=== PATIENT | male | born 1975 | race Caucasian/White ===

== ENCOUNTER → 2019-12-24 09:37 | Outpatient (BNVA) | payer MEDICAID, SELFPAY | PROVIDERS: Visit Provider Orthopaedic Surgery | DX: G56.03 Carpal tunnel syndrome, bilateral upper limbs (principal); M25.642 Stiffness of left hand, not elsewhere classified; M25.641 Stiffness of right hand, not elsewhere classified | CPT/HCPCS: 99202 ==

== ENCOUNTER 2019-12-25 18:58 | Emergency (ER) | payer MEDICAID, SELFPAY ==
[2019-12-25 19:34] VITALS: BP 143/83; PULSE 89; RESP 16; TEMP 36.8; O2SAT 97; BMI 36.5
[2019-12-25 20:20] LABS: Glucose, Whole Blood 218 mg/dL (60-115)
--- NOTE | 2019-12-25 21:32 | ECG_ITS ---
Test Reason : NECK PAIN Blood Pressure : / mmHG Vent. Rate : 075 BPM Atrial Rate : 075 BPM P-R Int : 138 ms QRS Dur : 082 ms QT Int : 368 ms P-R-T Axes : 046 054 040 degrees QTc Int : 410 ms Normal sinus rhythm Normal ECG No previous ECGs available Referred By: Victor Manuel Murphy Electronically Signed By:NEELAM ANDREW MD
--- NOTE | 2019-12-25 21:43 | XR_ITS ---
EXAMINATION: XR CERVICAL SPINE CLINICAL INFORMATION: Lower neck pain COMPARISON: 06/28/2018 TECHNIQUE: 3 views of the cervical spine were obtained. FINDINGS: Degenerative changes are present with disc space narrowing at narrowing at C5-C6 with some mild osteophyte formation. Findings appear to have progressed slightly since 06/28/2018 No prevertebral soft tissue swelling is seen. No fractures are seen. There is reversal of the normal cervical lordosis. XR/XR cervical spine 3V IMPRESSION: Degenerative changes C5-C6 with reversal of normal cervical lordosis which appears slightly worse than on 06/28/2018.
--- NOTE | 2019-12-25 21:44 | ED.CHESTPAIN ---
HPI - Chest Pain General Chief Complaint: Neck Pain/Injury Stated Complaint: Neck and shoulder pain Time Seen by Provider: 12/25/19 21:27 Source: patient Mode of arrival: ambulatory Limitations: no limitations History of Present Illness HPI narrative: patient with no significant cardiac known coronary artery disease complaining of left-sided chest pain left shoulder pain and left neck pain for last 1 and half months which increases on left arm movements and movements of the neck pain is there all the time get worse often. Patient denies any shortness of breath no injury MD complaint: chest pain Onset (ago): week(s) (6) Timing of current episode: constant Prior episodes: No Pain location: left chest Pain radiation: left arm and neck Severity: mild Quality: sharp Relieving factors: movement Exacerbating factors: nothing Risk Factors Coronary artery disease risk factors: diabetes and hypertension Related Data Previous Rx's Medication Instructions Recorded arm brace #1 ea 12/24/19 arm brace #1 ea 12/24/19 arm brace #1 ea 12/25/19 arm brace #1 ea 12/25/19 Allergies Allergy/AdvReac Type Severity Reaction Status Date / Time No Known Allergies Allergy Unverified 11/07/19 16:59 Review of Systems Review of Systems: REVIEW OF SYSTEMS: Pertinent positives and negatives are stated above in the history. GEN: no fevers, chills, fatigue HEENT: no nasal congestion, sore throat, ear pain NEURO: no headache, dizziness, focal weakness PULM: no cough, shortness of breath CV: no , palpitations, LE edema ABD: no abdominal pain, nausea, vomiting, diarrhea : no dysuria, urgency, frequency SKIN: no rash ROS otherwise negative x 10 PMFSH Past Medical History Medical History Diabetes HTN (hypertension) Social History Social History Advance Directives: No Current occupational status: unemployed Current occupation: Left Handed Physical Exam Vital Signs: Vital Signs: Vital Signs Temp Pulse Resp BP Pulse Ox 12/25/19 19:34 98.3 F 89 16 143/83 H 97 Body Mass Index 36.5 VITAL SIGNS: Reviewed. GENERAL: Well developed, well nourished, in no acute distress. HEAD: Normocephalic/atraumatic, EYES: PERRLA No pallor/icterus noted EARS: Ext canals without abnormality NOSE: Nares patent bilateral OROPHARYNX: Oral mucosa moist no oral lesions NECK: Supple, no adenopathy LUNGS: Normal breath sounds. No adventitious sounds or accessory muscle use CARDIOVASCULAR: Regular rate and rhythm without noted murmurs, no JVD or lower extremity edema. ABDOMEN: Soft, non-tender, non-distended with bowel sounds. No rigidity. No guarding. No palpable masses or hernias noted MUSCULOSKELETAL: diffuse tenderness left chest wall lower cervical spine and left shoulder which increases on movement of the left shoulder and palpation of lower part of the neck EXTREMITIES: No cyanosis or edema. SKIN: no rashes, ulcerations, jaundice, pallor, or petechiae NEUROLOGIC: Alert and oriented x 3. 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
[2019-12-25] MEDS: Ketorolac Tromethamine 60 MG/2 ML VIAL IM (22:03)
[2019-12-25 22:04] VITALS: BP 135/91; PULSE 90; RESP 19; TEMP 36.9; O2SAT 96
[2019-12-25 22:26] LABS: MANUAL DIFF FLAG NO
[2019-12-25 22:27] LABS: Basophils Percent Auto 0.4 % (0-2); Eosinophils Absolute Auto 0.1 X10*3/uL (0.0-0.4); Eosinophils Percent Auto 1.7 % (0-4); Hemoglobin 14.4 g/dl (14.0-18.0); Imm Gran Abs Auto 0.04 X10*3/uL (0.00-0.03); Imm Gran Pct Auto 0.6 % (0.0-0.4); Lymphocytes Absolute Auto 3.2 X10*3/uL (1.2-4.9); Lymphocytes Percent Auto 46.5 % (20-40); Mean Corpuscular HGB Conc 33.5 g/dl (31.0-36.0); Mean Corpuscular Hemoglobin 31.9 pg (27.0-33.0); Mean Corpuscular Volume 95.3 fL (80-98); Mean Platelet Volume 10.7 fL (9.4-12.4); Monocytes Absolute Auto 0.6 X10*3/uL (0.1-1.2); Monocytes Percent Auto 8.2 % (2-11); Neutrophils Absolute Auto 2.9 X10*3/uL (2.0-8.3); Neutrophils Percent Auto 42.6 % (45-73); Platelet Count 200 X10*3/uL (160-400); Red Blood Count 4.51 X10*6/uL (4.60-5.80); Red Cell Distribution Width 12.7 % (11.0-16.0); White Blood Count 6.9 X10*3/uL (4.8-10.8)
[2019-12-25 22:48] LABS: Anion Gap 13 (12-20); Blood Urea Nitrogen 25 mg/dL (9-16); Calcium 9.8 mg/dL (8.4-10.2); Carbon Dioxide 27 mmol/L (22-29); Chloride 101 mmol/L (96-108); Creatinine Clr Calc Pharmacy 85.6; Estimated Glomerular Filt Rate 60; Glucose Random 237 mg/dL (60-115); Sodium 137 mmol/L (135-145)
[2019-12-25 22:53] LABS: Troponin-I High Sensitivity < 3.5 ng/L (<3.5-35.0)
== END 2019-12-25 23:19 | disposition home or self-care (01) ==
PROVIDERS: Emergency Provider Internal Medicine; PCP Internal Medicine
DX: M54.2 Cervicalgia (principal); M79.602 Pain in left arm
CPT/HCPCS: 36415; 72040; 80048; 82947; 84484; 85025; 93005; 96372; 99284; J1885

== ENCOUNTER 2019-12-30 10:16 | Emergency (ER) | payer MEDICAID, SELFPAY ==
--- NOTE | 2019-12-30 | ECG_ITS ---
Test Reason : SHOULDER PAIN Blood Pressure : / mmHG Vent. Rate : 073 BPM Atrial Rate : 073 BPM P-R Int : 150 ms QRS Dur : 080 ms QT Int : 372 ms P-R-T Axes : 033 052 037 degrees QTc Int : 409 ms Normal sinus rhythm Normal ECG When compared with ECG of 25-DEC-2019 22:56, No significant change was found Referred By: Generic ED Physician Electronically Signed By:NEELAM ANDREW MD
[2019-12-30 10:44] VITALS: BP 131/78; PULSE 87; RESP 18; TEMP 36.8; O2SAT 99; BMI 36.5
--- NOTE | 2019-12-30 10:53 | ED_ITS ---
HPI - Extremity Problem General Chief complaint: Extremity Problem Stated complaint: SHOULDER PAIN,NO INJ Time Seen by Provider: 12/30/19 10:42 Source: patient and asl interpreter Mode of arrival: ambulatory Limitations: no limitations History of Present Illness HPI Narrative: 45 days of L neck pain that raidates to L shoulder and chest atraumatic MD Complaint: other (L neck and shoulder pain) Onset (ago): day(s) (45) Pain Consistency: constant Location: left and upper extremity Quality: aching Radiation: distal Relieving factors: nothing Exacerbating factors: range of motion Associated symptoms: denies other symptoms Related Data Previous Rx's Medication Instructions Recorded arm brace #1 ea 12/24/19 arm brace #1 ea 12/24/19 arm brace #1 ea 12/25/19 arm brace #1 ea 12/25/19 cyclobenzaprine 10 mg PO Q8H #20 tab 12/25/19 tramadol 50 mg PO Q8H PRN #30 tab 12/25/19 diazepam [Valium] 5 mg PO TID PRN #10 tab 12/30/19 lidocaine 1 patch TOPICAL DAILY PRN #10 ea 12/30/19 Allergies Allergy/AdvReac Type Severity Reaction Status Date / Time No Known Allergies Allergy Unverified 11/07/19 16:59 Review of Systems Review of Systems: Constitutional : No Fever, No Chills ENT/Mouth : No Ear Pain, No Hoarseness, No sore throat Eyes: No Eye Pain, No Swelling, No Redness, No Foreign Body Cardiovascular : No Chest Pain, No SOB Respiratory : No Cough, No Dyspnea Gastrointestinal : No Nausea, No Vomiting, No Diarrhea, No abdominal Pain Genitourinary : No Dysuria, No Hematuria Musculoskeletal : positive joint pain, No Myalgias, No Joint Swelling Skin : No Skin lacerations, No rash Neuro : No Weakness, No Numbness, No Loss of Consciousness, No Dizziness, No Headache Psych : No Anxiety/Panic, No Depression Heme/Lymph: no easy bruising, no Lymphadenopathy Endocrine : No Polyuria, No Polydipsia All other systems reviewed and are negative [facility] Past Medical History Medical History Diabetes HTN (hypertension) Social History Social History Alcohol intake: never Smoking Status: Never smoker Use of substances other than those prescribed or required for medical reasons: No Advance Directives: Yes Advance Directives Information Provided: Yes Advance Directives on File: No Current occupational status: unemployed Current occupation: Left Handed Physical Exam Vital Signs: Vital Signs: Last Vital Signs Temp 98.2 F 12/30/19 10:44 Pulse 87 12/30/19 10:44 Resp 18 12/30/19 10:44 BP 131/78 12/30/19 10:44 Pulse Ox 99 12/30/19 10:44 Body Mass Index 36.5 Appearance: Alert. Oriented X3. No acute distress. Eyes: Pupils equal, round and reactive to light. ENT: Pharynx normal. Neck: L neck pain radiates to left shoulder no mass felt, distal NV intact CVS: Normal heart rate and rhythm. Pulses normal. Respiratory: No respiratory distress. Breath sounds normal. Abdomen: Soft and nontender. Skin: Skin warm and dry. Normal skin color. Normal skin turgor. Extremities: No lower extremity edema. No calf ttp Neuro: Oriented X 3. No motor deficit. No sensory deficit. MDM - Extremity (Nontraumatic) MDM Narrative Medical decision making narrative: 44 yo male with 45 days of L neck pain radiates up to L shoulder recent xray disease at C5-C6 he is NV intact, will provide valium and obtain CT scan for better look at vertebrae aware he needs to follow up with PCP for likely MRI given pain and chronicity ECG Data Attestation EKG: I personally reviewed and interpreted this ECG as follows: ECG interpretation date: 12/30/19 ECG interpretation time: 11:46 Interpretation: Rate: 75 Rhythm: NSR [place]: normal Normal P waves. Normal DILIP. Normal QRS complex. ST T wave : nonspecific qTC: normal prior studies: no acute ischemia The study has been interpreted contemporaneously by me. . Discharge Plan Discharge Clinical Impression: Cervical radiculopathy at C5 Patient Disposition: Home, Self-Care Instructions: Cervical Radiculopathy (ED) Prescriptions: New lidocaine 4 % adhesive patch,medicated 1 patch topical DAILY PRN (Reason: pain) Qty: 10 RF: 0 diazepam [Valium] 5 mg tablet 5 mg PO TID PRN (Reason: muscle spasm) Qty: 10 RF: 0 No Action tramadol 50 mg tablet 50 mg PO Q8H PRN (Reason: pain) Qty: 30 RF: 0 cyclobenzaprine 10 mg tablet 10 mg PO Q8H Qty: 20 RF: 0 (DME) Wrist Brace Misc See Rx Instructions .MEDSUPPLY Qty: 1 RF: 0 (DME) Wrist Brace Misc See Rx Instructions .MEDSUPPLY Qty: 1 RF: 0 (DME) Wrist Brace Misc See Rx Instructions .MEDSUPPLY Qty: 1 RF: 0 (DME) Wrist Brace Misc See Rx Instructions miscellaneous .MEDSUPPLY Qty: 1 RF: 0 Referrals: Kym Patel MD [Primary Care Provider] - 2 days Stand Alone Forms: Work/School Release
--- NOTE | 2019-12-30 10:57 | CT_ITS ---
EXAMINATION: CT CERVICAL SPINE WITHOUT CONTRAST CLINICAL INFORMATION: Left-sided neck pain COMPARISON: Plain film studies of December 25, 2019 and June 28, 2018 TECHNIQUE: CT cervical spine without intrathecal contrast. Coronal and sagittal reconstructions. This CT examination was performed using dose optimization techniques as appropriate, variously including the following: *Automated exposure control *Adjustment of mA and/or kV according to patient size (this includes techniques or standardized protocols for targeted exams where dose is matched to indication/reason for exam; i.e. extremities or head) *Use of iterative reconstruction technique DLP: 668 mGy-cm FINDINGS: No abnormal prevertebral soft tissue swelling is seen. Paraspinal muscle planes are intact. There is loss of normal cervical spine lordosis. There is narrowing of the C5-6 disc space with some marginal spurring present. No acute cervical spine fracture present. No significant neural foraminal approach medial is seen with minimal spurring joints of L[place]ch[place] at the C5-[address]/CT cervical spine wo con IMPRESSION: Mild degenerative change C5-6 level as described.
[2019-12-30] MEDS: diazePAM 5 MG TABLET PO (11:02)
== END 2019-12-30 12:30 | disposition home or self-care (01) ==
PROVIDERS: Emergency Provider Emergency Medicine; PCP Internal Medicine
DX: M54.12 Radiculopathy, cervical region (principal); M25.512 Pain in left shoulder
CPT/HCPCS: 72125; 93005; 99283; 99284

== ENCOUNTER 2020-01-06 09:30 | Outpatient (RCR) | payer MEDICAID, SELFPAY | END 2020-02-13 08:52 | disposition home or self-care (01) | LOC: HO.OT 09:30 | PROVIDERS: PCP Internal Medicine; Visit Provider Orthopaedic Surgery | DX: G56.03 Carpal tunnel syndrome, bilateral upper limbs (principal) | CPT/HCPCS: 97035; 97110; 97165; 97168; 97760 ==

== ENCOUNTER 2020-07-27 14:27 | Emergency (ER) | payer OTHER, MEDICAID, SELFPAY ==
--- NOTE | ~2020-07-27 | XR_ITS ---
EXAMINATION: XR SHOULDER, LEFT CLINICAL INFORMATION: Left shoulder injury. COMPARISON: None TECHNIQUE: Three views of the left shoulder. FINDINGS: The bones and soft tissues are normal. No fracture. Glenohumeral and acromioclavicular alignment is anatomic with normal joint space. No abnormal soft tissue calcifications. XR/XR shoulder LT min 2V IMPRESSION: Normal left shoulder.
[2020-07-27 14:39] VITALS: BP 137/81; PULSE 77; RESP 17; TEMP 36.3; O2SAT 97; BMI 35.7
--- NOTE | 2020-07-27 14:47 | PC.NURSE ---
pt given an ice pack.
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
== END 2020-07-27 17:11 | disposition home or self-care (01) ==
PROVIDERS: Emergency Provider Emergency Medicine; PCP Internal Medicine
DX: S46.812A Strain of other muscles, fascia and tendons at shoulder and upper arm level, left arm, initial encounter (principal); I10 Essential (primary) hypertension; E11.9 Type 2 diabetes mellitus without complications; V43.52XA Car driver injured in collision with other type car in traffic accident, initial encounter; Y93.89 Activity, other specified; Y92.410 Unspecified street and highway as the place of occurrence of the external cause; Y99.9 Unspecified external cause status
CPT/HCPCS: 73030; 99283

== ENCOUNTER → 2020-12-22 09:55 | Outpatient (BNVA) | payer MEDICAID, SELFPAY | PROVIDERS: Visit Provider Orthopaedic Surgery | DX: G56.03 Carpal tunnel syndrome, bilateral upper limbs (principal); G56.22 Lesion of ulnar nerve, left upper limb; M65.4 Radial styloid tenosynovitis [de Quervain] | CPT/HCPCS: 99202 ==

== ENCOUNTER 2021-06-10 12:43 | Outpatient (REF) | payer MEDICAID, SELFPAY ==
--- NOTE | ~2021-06-10 | CT_ITS ---
EXAMINATION: CT ABDOMEN AND PELVIS WITHOUT CONTRAST CLINICAL INFORMATION: Abdominal pain. Rule out kidney stones. COMPARISON: CT abdomen 10/11/2010. TECHNIQUE: Multidetector volumetric imaging was performed from the superior aspect of the liver through the pubic symphysis. Sagittal and coronal reformatted images were obtained on the technologist's workstation. This CT examination was performed using dose optimization techniques as appropriate, variously including the following: *Automated exposure control *Adjustment of mA and/or kV according to patient size (this includes techniques or standardized protocols for targeted exams where dose is matched to indication/reason for exam; i.e. extremities or head) *Use of iterative reconstruction technique DLP: 728 mGy-cm FINDINGS: LUNG BASES: Minimal atelectatic changes are seen in the lingula. The lung bases are clear. The heart size is normal. Trace coronary artery calcification seen. LIVER, GALLBLADDER, AND BILIARY TREE: The liver is normal in size, shape, and diffusely attenuated. No focal hepatic lesion or biliary ductal dilatation is present. The gallbladder is unremarkable with no evidence of radiopaque gallstones, gallbladder wall thickening, or obvious pericholecystic inflammatory changes. PANCREAS: Unremarkable. SPLEEN: Unremarkable. ADRENAL GLANDS: Unremarkable. KIDNEYS AND URETERS: The kidneys are normal in size, shape, and attenuation. There is a punctate 1 mm calculus upper pole calyx right kidney. A 2 mm hyperdensity seen in lower pole cortex right kidney. There are no radiopaque density or calculi seen in the left kidney. There is mild bilateral perinephric stranding. No hydronephrosis seen. BLADDER: Unremarkable. GASTROINTESTINAL TRACT: There is scattered stool and gas seen throughout the colon without any significant distention. The small bowel loops are opacified with oral contrast and appear normal caliber. Appendix is normal caliber. The stomach is opacified with oral contrast. ABDOMINAL WALL: No significant hernia is appreciated. LYMPH NODES: Normal. VASCULAR: There is atherosclerotic calcification of abdominal aorta without aneurysmal dilatation. PELVIC VISCERA: There is no free air or free fluid. There are scattered lymph nodes in bilateral inguinal region with the largest lymph node measuring 1.1 cm left inguinal region image 202/102. A 1.2 cm lymph node is seen in the right inguinal region. OSSEOUS STRUCTURES: No lytic or sclerotic process seen. CT/CT abdomen pelvis wo con IMPRESSION: Punctate 2 mm hyperdensity/calculus seen in the lower pole cortex right kidney. No additional radiopaque calculus in either kidney. There is no hydronephrosis. Fleischner guidelines were followed.
== END 2021-06-10 12:44 | disposition home or self-care (01) ==
LOC: HO.CT 12:43
PROVIDERS: PCP Internal Medicine; Visit Provider Emergency Medicine
DX: R10.9 Unspecified abdominal pain (principal)
CPT/HCPCS: 74176

== ENCOUNTER 2021-08-27 14:52 | Outpatient (AMB) | payer MEDICAID, SELFPAY ==
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
== END 2021-08-27 15:55 | disposition home or self-care (01) ==
LOC: HO.HUSH 14:52
PROVIDERS: PCP Internal Medicine; Visit Provider Urology
DX: N20.0 Calculus of kidney (principal)
CPT/HCPCS: 99499

== ENCOUNTER 2022-02-16 14:16 | Outpatient (REF) | payer MEDICAID, SELFPAY ==
--- NOTE | ~2022-02-16 | XR_ITS ---
EXAMINATION: XR KNEE, RIGHT CLINICAL INFORMATION: Chronic right knee pain. COMPARISON: None TECHNIQUE: Four views of the right knee. FINDINGS: There is no evidence of acute fracture or dislocation of the right knee. No right knee effusion is identified. Right knee joint spaces are maintained. XR/XR knee RT 4V IMPRESSION: No significant bony abnormality of the right knee identified.
== END 2022-02-16 14:17 | disposition home or self-care (01) ==
LOC: HO.XRAY 14:16
PROVIDERS: PCP Internal Medicine; Visit Provider Emergency Medicine
DX: M25.561 Pain in right knee (principal)
CPT/HCPCS: 73564

== ENCOUNTER 2022-03-15 12:05 | Outpatient (REF) | payer MEDICAID, SELFPAY | END 2022-03-15 12:06 | disposition home or self-care (01) | LOC: HO.HOSX 12:05 | PROVIDERS: Visit Provider Physician Assistant | DX: Z13.89 Encounter for screening for other disorder (principal) ==

== ENCOUNTER 2022-04-22 12:41 | Outpatient (REF) | payer MEDICAID, SELFPAY ==
--- NOTE | ~2022-04-22 | XR_ITS ---
EXAMINATION: XR KNEE AP STANDING CLINICAL INFORMATION: Pain right knee COMPARISON: None TECHNIQUE: AP bilateral standing view of the knees was obtained. FINDINGS: There is normal size symmetrical medial and lateral compartment joint space bilaterally. No bony erosive changes. No loose bodies. No fracture or lytic process. The soft tissues are normal. XR/XR knee standing BI IMPRESSION: Unremarkable bilateral knee AP standing.
== END 2022-04-22 12:42 | disposition home or self-care (01) ==
LOC: HO.HOSX 12:41
PROVIDERS: PCP Internal Medicine; Visit Provider Physician Assistant
DX: M17.11 Unilateral primary osteoarthritis, right knee (principal); M25.562 Pain in left knee
CPT/HCPCS: 73565; 99212

== ENCOUNTER → 2022-07-06 12:44 | Outpatient (BNVA) | payer MEDICAID, SELFPAY | PROVIDERS: PCP Internal Medicine; Visit Provider Orthopaedic Surgery | DX: G56.03 Carpal tunnel syndrome, bilateral upper limbs (principal); M65.4 Radial styloid tenosynovitis [de Quervain] | CPT/HCPCS: 99212 ==

== ENCOUNTER 2022-09-28 09:31 | Outpatient (AMB) | payer MEDICAID, SELFPAY ==
[2022-09-28 09:46] VITALS: BP 114/80; PULSE 63; BMI 35.1
--- NOTE | 2022-09-28 09:46 | MHC.OFFVIS ---
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 Name: Jamie [id number] Accompanied by: Self / Same As Patient Allergies No Known Allergies Allergy (Verified 09/28/22 09:47) Medication List - Last Reconciled 09/28/22 by Jorge Alberto Madera MD atorvastatin 40 mg PO QAM canagliflozin (Invokana) 100 mg PO QAM canagliflozin (Invokana) 300 mg PO QAM dulaglutide (Trulicity) mg subcut QWEEK gabapentin 800 mg PO TID glimepiride 4 mg PO BID ibuprofen 600 mg PO Q6H PRN lancets (TRUEplus Lancets) As directed lidocaine 4% 1 patch topical DAILY PRN lisinopril 40 mg PO DAILY pioglitazone 30 mg PO QAM HPI HPI Comments History of Present Illness Details Luis Daniel is here for consultation regarding chest pains. No known cardiac issues like coronary disease myocardial infarction or cardiomyopathy. However, multiple cardiovascular risk factors including obesity, hypertension, type 2 diabetes, dyslipidemia. He states that he gets chest pain on the left side somewhat randomly. No specific provoking or relieving factors. Some left arm discomfort as well at that time. Can happen any time. Nothing clearly exertional. [facility] Medical History (Updated 09/28/22 @ 10:10 by Jorge Alberto Madera MD) Diabetes High cholesterol HTN (hypertension) Family History (Updated 09/28/22 @ 09:50 by Freda Macias) Father No problems noted. Mother No problems noted. Brother Heart replaced by transplant Social History Alcohol intake: never Current occupational status: unemployed Current occupation: Left Handed Review of Systems Const Denies chills, Denies daytime sleepiness, Denies fatigue, Denies fever(s), Denies frequent falls, Denies night sweats, Denies snoring, Denies weakness, Denies weight gain and Denies weight loss Eyes Denies loss of vision ENT Denies dizziness and Denies hearing loss Card Denies chest pain, Denies chest pain with activity, Denies syncope, Denies rapid heart rate, Denies edema, Denies claudication, Denies leg edema, Denies lightheadedness, Denies palpitations, Denies dyspnea, Denies dyspnea on exertion and Denies orthopnea Resp Denies cough, Denies excessive phlegm production, Denies dyspnea, Denies dyspnea on exertion, Denies snoring and Denies wheezing GI Denies abdominal pain, Denies hematochezia, Denies change in bowel habits, Denies change in stool character, Denies heartburn, Denies nausea and Denies vomiting Denies hematuria, Denies dysuria and Denies urinary frequency Musc Denies arthralgias, Denies muscle weakness, Denies numbness and Denies tingling Skin/Breast Denies nail changes and Denies rash Neuro Denies Abnormal speech present, Denies dizziness, Denies syncope, Denies frequent falls, Denies loss of vision, Denies memory loss, Denies numbness, Denies tingling and Denies weakness Psych Denies depression and Denies memory loss Endo Denies fatigue and Denies palpitations Aller/Immun Denies wheezing Physical Exam Vital Signs: Last Vital Signs Pulse 63 09/28/22 09:46 BP 114/80 09/28/22 09:46 BMI result Body Mass Index 35.1 Const General: comfortable and no acute distress Orientation/consciousness: patient oriented x3 HEENT Other: Unremarkable Head: Yes normal to inspection Neck Neck: Yes normal visual inspection Chest Chest palpation & inspection: normal inspection of the chest Resp Auscultation: clear to auscultation bilaterally Cardio Palpation: normal PMI Heart sounds: S1 normal heart sound present, S2 normal heart sound present, no gallops, no murmurs and no rubs GI Palpation (GI): Soft to palpation Back/Spine/Pelvis Other: unremarkable Skin General skin exam: no rashes or lesions noted Neuro General: patient oriented x3 Speech: No Abnormal speech present Extrem General: Yes normal to inspection Psych Mental Status: mental status grossly normal Office Procedures EKG Details: EKG with sinus rhythm at 63/Min; no significant ST-T changes and otherwise [place] [id number], Complete Assessment & Plan Assessment & Plan (1) Precordial chest pain: Code(s): R07.2 - Precordial pain (2) Diabetes: Code(s): E11.9 - Type 2 diabetes mellitus without complications (3) HTN (hypertension): Code(s): I10 - Essential (primary) hypertension (4) High cholesterol: Code(s): E78.00 - Pure hypercholesterolemia, unspecified Plan Atypical symptoms but he has numerous cardiovascular risk factors. Hence we will pursue further workup with an echocardiogram and stress test. Based on the findings, will plan further care. Orders: Orders CA echo stress exercise Today R07.2 - Precordial pain CA echo transthoracic complete Today I25.10 - Atherosclerotic heart disease of [place] coronary artery without angina pectoris, R07.2 - Precordial pain Coding Level of Care Code New Pt Level 4 (90019) Diagnoses Precordial chest pain R07.2 Diabetes E11.9 HTN (hypertension) I10 High cholesterol E78.00 CPT Codes EKG - CPT: 93470-[id number], Complete ([id number])
== END 2022-09-28 10:11 | disposition home or self-care (01) ==
LOC: HO.HCSM 09:31
PROVIDERS: PCP Internal Medicine; Referring Provider Internal Medicine; Visit Provider Internal Medicine
DX: R07.2 Precordial pain (principal); E11.9 Type 2 diabetes mellitus without complications; I10 Essential (primary) hypertension; E78.00 Pure hypercholesterolemia, unspecified
CPT/HCPCS: 93010; 99204

== ENCOUNTER → 2022-09-28 09:31 | Outpatient (BNVA) | payer MEDICAID, SELFPAY | PROVIDERS: PCP Internal Medicine; Referring Provider Internal Medicine; Visit Provider Internal Medicine | DX: R07.2 Precordial pain (principal); I10 Essential (primary) hypertension; E11.9 Type 2 diabetes mellitus without complications; E78.00 Pure hypercholesterolemia, unspecified | CPT/HCPCS: 93005; 99202 ==

== ENCOUNTER 2022-09-29 13:07 | Outpatient (REF) | payer MEDICAID, SELFPAY ==
--- NOTE | ~2022-09-29 | US_ITS ---
EXAMINATION: US RETROPERITONEAL LIMITED (RENAL ONLY) CLINICAL INFORMATION: Calculus of kidney. COMPARISON: CT abdomen pelvis dated 06/10/2021. TECHNIQUE: Real-time imaging of the kidneys. FINDINGS: RIGHT KIDNEY: 10.1 x 5.7 x 5.7 cm (SAG x AP x TRV). The kidney is normal in size, contour, and echogenicity. Renal cortical thickness is normal. No focal parenchymal lesions or hydronephrosis. At the lower pole, a 4 mm nonobstructing calculus is seen, with twinkle artifact. LEFT KIDNEY: 11.3 x 6.8 x 6.1 cm (SAG x AP x TRV). The kidney is normal in size, contour, and echogenicity. Renal cortical thickness is normal. No calculi or focal parenchymal lesions. No hydronephrosis. US/US renal BI IMPRESSION: A 4 mm nonobstructing right renal calculus is seen. No left renal calculus is seen. No hydronephrosis is noted bilaterally.
== END 2022-09-29 13:08 | disposition home or self-care (01) ==
LOC: HO.US 13:07
PROVIDERS: PCP Internal Medicine; Visit Provider Urology
DX: N20.0 Calculus of kidney (principal)
CPT/HCPCS: 76775

== ENCOUNTER 2022-09-30 11:59 | Outpatient (REF) | payer MEDICAID, SELFPAY ==
[2022-09-30 13:53] LABS: MANUAL DIFF FLAG NO
[2022-09-30 14:06] LABS: Basophils Percent Auto 0.5 % (0-2); Eosinophils Absolute Auto 0.1 X10*3/uL (0.0-0.4); Hematocrit 42.9 % (42.0-52.0); Hemoglobin 13.9 g/dl (14.0-18.0); Imm Gran Abs Auto 0.03 X10*3/uL (0.00-0.03); Imm Gran Pct Auto 0.5 % (0.0-0.4); Lymphocytes Absolute Auto 2.7 X10*3/uL (1.2-4.9); Lymphocytes Percent Auto 46.3 % (20-40); Mean Corpuscular HGB Conc 32.4 g/dl (31.0-36.0); Mean Corpuscular Hemoglobin 31.5 pg (27.0-33.0); Mean Corpuscular Volume 97.3 fL (80.0-98.0); Mean Platelet Volume 10.4 fL (9.4-12.4); Monocytes Absolute Auto 0.6 X10*3/uL (0.1-1.2); Monocytes Percent Auto 10.1 % (2-11); Neutrophils Absolute Auto 2.4 x10*3/uL (2.0-8.3); Neutrophils Percent Auto 41.6 % (45-73); Platelet Count 197 X10*3/uL (160-400); Red Blood Count 4.41 X10*6/uL (4.60-5.80); Red Cell Distribution Width 13.3 % (11.0-16.0); White Blood Count 5.7 X10*3/uL (4.8-10.8)
[2022-09-30 15:12] LABS: Alanine Aminotransferase 33 U/L (0-40); Albumin Level 4.4 g/dL (3.5-5.0); Alkaline Phosphatase 59 U/L (39-117); Anion Gap 12 (12-20); Aspartate Amino Transferase 21 U/L (5-37); Bilirubin Direct 0.2 mg/dL (0.0-0.5); Bilirubin Total 0.4 mg/dL (0.0-1.0); Blood Urea Nitrogen 26 mg/dL (9-16); Calcium 10.6 mg/dL (8.4-10.2); Carbon Dioxide 26 mmol/L (22-29); Chloride 107 mmol/L (96-108); Cholesterol 139 mg/dL; Estimated Glomerular Filt Rate > 60; Glucose Random 67 mg/dL (60-115); HDL Cholesterol 41 mg/dL; LDL Cholesterol Calculated 73 mg/dl; Potassium 4.7 mmol/L (3.3-5.1); Sodium 140 mmol/L (135-145); Total Protein 7.8 g/dL (6.5-8.0); Triglycerides 127 mg/dL
[2022-09-30 17:14] LABS: Creatinine Urine 96.35 mg/dL; Microalbumin Urine < 5.0 mg/L
== END 2022-09-30 12:00 | disposition home or self-care (01) ==
LOC: HO.HHCL 11:59
PROVIDERS: Visit Provider Internal Medicine
DX: E11.65 Type 2 diabetes mellitus with hyperglycemia (principal)
CPT/HCPCS: 36415; 80048; 80061; 80076; 82043; 85025

== ENCOUNTER 2022-10-03 09:30 | Outpatient (AMB) | payer MEDICAID, SELFPAY ==
--- NOTE | 2022-10-03 03:27 | MHC.OFFVIS ---
Intake Intake Visit Reasons: 1Y US(09/29) Intake Note: Patient presents today for a 1 YR follow-up with US Results: US Completed on 09/29/2022. Meds- None Allergies to Antibiotic- No Known Allergies Blood Thinner- None Hand Tufter Required: Yes Hand Tufter Language: [place] Worker Name: AGNIESZKA Bañuelos, CMI/GUILLERMINA Information Interpreted: non-clinical & clinical Accompanied by: Self / Same As Patient Allergies No Known Allergies Allergy (Verified 10/03/22 10:12) HPI HPI Comments History of Present Illness Details Luis Daniel is a 47-year-old male who presents today to the office for a one year follow up on US. 10/03/2022-- The patient is a Tajik speaking male. 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 He was last seen by Dr. Gonzales on 08/27/2021.? He denies any hematuria. He denies any family history of prostate cancer. In discussion with the patient, he states that while he was in [place] he went to ER, and he was told that his kidneys were not functioning well, and advised to discontinue Celebrex. He had blood work by his PCP. I reviewed the results?BUN?26, creatinine?1.17. I reviewed the results of the CT scan of the abdomen/pelvis without IV contrast from 06/10/2021 revealed punctuate 2 mm stone in the lower pole of the right kidney. I reviewed the renal US from 09/29/2022 revealed official report is not available, findings are suggestive 4 mm stone in the lower pole of the right kidney. Plan: Ordered 24-hour urine collection. PSA screening. Patient was encouraged to drink adequate fluids daily. Follow up in 3 months to check the urine results. PFSH Medical History Diabetes High cholesterol HTN (hypertension) Surgical History Hx of eye surgery Hx of removal of cyst Family History Father No problems noted. Mother No problems noted. Brother Heart replaced by transplant Social History Alcohol intake: never Current occupational status: unemployed Current occupation: Left Handed Review of Systems Const All systems reviewed & are unremarkable except as noted in HPI and below Reports no additional complaints Eyes Reports no additional complaints ENT Reports no additional complaints Card Denies dyspnea Resp Denies cough and Denies dyspnea GI Reports no additional complaints Musc Reports no additional complaints Skin/Breast Denies rash and Denies unusual bruising Neuro Reports no additional complaints Psych Reports no additional complaints Endo Reports no additional complaints Daniel/Lymph Reports no additional complaints Aller/Immun Reports no additional complaints Physical Exam Const General: healthy appearing, no acute distress and well developed Orientation/consciousness: patient oriented x3 HEENT Head: Yes normocephalic and Yes atraumatic Eyes Conjunctivae: conjunctivae normal Neck Neck: Yes normal visual inspection Chest Chest palpation & inspection: normal inspection of the chest Resp Effort & Inspection: normal respiratory effort Cardio Rate: regular rate GI Inspection: Yes normal to inspection Skin General skin exam: no rashes or lesions noted Neuro General: patient oriented x3 Psych Appearance: grossly normal Affect: normal affect Results AMB Urinalysis, Automated UA Leukoctes 0 Roland/uL Last Edit by Teresa Polo [facility] on 10/03/22 10:19 UA Nitrite Negative Last Edit by Teresa Polo [facility] on 10/03/22 10:19 UA Urobilinogen 0.2 mg/dL Last Edit by Teresa Polo [facility] on 10/03/22 10:19 UA Protein 0 mg/dL Last Edit by Teresa Polo [facility] on 10/03/22 10:19 UA pH 6.0 Last Edit by Teresa Polo [facility] on 10/03/22 10:19 UA Blood 0 Sixto/uL Last Edit by Teresa Polo [facility] on 10/03/22 10:19 UA Specific [place] 1.015 Last Edit by Teresa Polo [facility] on 10/03/22 10:19 UA Ketone Negative Last Edit by Teresa Polo [facility] on 10/03/22 10:19 UA Bilirubin 0 mg/dL Last Edit by Teresa Polo [facility] on 10/03/22 10:19 UA Glucose 1000 mg/dL Last Edit by Teresa Polo [facility] on 10/03/22 10:19 3+ Teresa Polo 10/03/22 10:19 Results Reviewed Results Reviewed: Laboratory Last Values Urine pH (Auto) 6.0 10/03/22 10:18 Specific [place] (Auto) 1.015 10/03/22 10:18 Urine Protein (Auto) 0 mg/dL 10/03/22 10:18 Glucose (UA)(Auto) 1000 mg/dL 10/03/22 10:18 Urine Ketones (Auto) Negative 10/03/22 10:18 Urine Blood (Auto) 0 Sixto/uL 10/03/22 10:18 Urine Nitrite (Auto) Negative 10/03/22 10:18 Urine Bilirubin (Auto) 0 mg/dL 10/03/22 10:18 Urine Urobilinogen (Auto) 0.2 mg/dL 10/03/22 10:18 Leukocyte Esterase (Auto) 0 Roland/uL 10/03/22 10:18 Date of Service: 06/10/21 cc: SERGEY COLE MD~ EXAMINATION: CT ABDOMEN AND PELVIS WITHOUT CONTRAST? CLINICAL INFORMATION: Abdominal pain. Rule out kidney stones.? COMPARISON: CT abdomen 10/11/2010.? FINDINGS: LUNG BASES: Minimal atelectatic changes are seen in the lingula. The lung bases are clear. The heart size is normal. Trace coronary artery calcification seen.? LIVER, GALLBLADDER, AND BILIARY TREE: The liver is normal in size, shape, and diffusely attenuated. No focal hepatic lesion or biliary ductal dilatation is present. The gallbladder is unremarkable with no evidence of radiopaque gallstones, gallbladder wall thickening, or obvious pericholecystic inflammatory changes.? PANCREAS: Unremarkable.? SPLEEN: Unremarkable.? ADRENAL GLANDS: Unremarkable.? KIDNEYS AND URETERS: The kidneys are normal in size, shape, and attenuation. There is a punctate 1 mm calculus upper pole calyx right kidney. A 2 mm hyperdensity seen in lower pole cortex right kidney. There are no radiopaque density or calculi seen in the left kidney. There is mild bilateral perinephric stranding. No hydronephrosis seen. BLADDER: Unremarkable.? GASTROINTESTINAL TRACT: There is scattered stool and gas seen throughout the colon without any significant distention. The small bowel loops are opacified with oral contrast and appear normal caliber. Appendix is normal caliber. The stomach is opacified with oral contrast.? ABDOMINAL WALL: No significant hernia is appreciated.? LYMPH NODES: Normal. VASCULAR: There is atherosclerotic calcification of abdominal aorta without aneurysmal dilatation. PELVIC VISCERA: There is no free air or free fluid. There are scattered lymph nodes in bilateral inguinal region with the largest lymph node measuring 1.1 cm left inguinal region image 202/102. A 1.2 cm lymph node is seen in the right inguinal region.? OSSEOUS STRUCTURES: No lytic or sclerotic process seen.? IMPRESSION: Punctate 2 mm hyperdensity/calculus seen in the lower pole cortex right kidney. No additional radiopaque calculus in either kidney. There is no hydronephrosis.? Assessment & Plan Assessment & Plan (1) Screening PSA (prostate specific antigen): Code(s): Z12.5 - Encounter for screening for malignant neoplasm of prostate Plan: Ordered 24-hour urine collection. PSA screening. Patient was encouraged to drink adequate fluids daily. Follow up in 3 months to check the urine results. (2) Right kidney stone: Code(s): N20.0 - Calculus of kidney (3) CKD (chronic kidney disease): Code(s): N18.9 - Chronic kidney disease, unspecified Orders: Orders PSA,Total (Free>4and<10) Today Z12.5 - Encounter for screening for malignant neoplasm of prostate AMB Urinalysis Automated Today Z13.9 - Encounter for screening, unspecified Patient Instructions: The patient had an opportunity to ask questions regarding treatment plan. All questions were answered. Imaging, Laboratory studies and physical exam results were discussed and reviewed in detail. No major barriers to understanding were identified. The patient expressed understanding and agreement with the above treatment plan.? ? ? The patient is aware they should contact our office by phone for worsening of their current condition or the appearance of new symptoms. Compliance is encouraged with any medications and followup testing that is ordered.? ? ? It is a privilege to be allowed the opportunity to participate in the urologic care of your patient. If you have any questions or concerns regarding treatment for the above conditions please do not hesitate to contact me. The office telephone contact is [phone].? ? ? This note is constructed in part using voice recognition software. While every effort has been made to ensure accuracy recorder helper seismograph errors may have been included.? ? ? Yours sincerely,? ? ? Elisabeth Rowley MD? Coding Level of Care Code Est Pt Level 4 (66029) Diagnoses Screening PSA (prostate specific antigen) Z12.5 Right kidney stone N20.0 CKD (chronic kidney disease) N18.9
== END 2022-10-03 10:46 | disposition home or self-care (01) ==
PROVIDERS: PCP Internal Medicine; Visit Provider Urology
DX: Z12.5 Encounter for screening for malignant neoplasm of prostate (principal); N20.0 Calculus of kidney; N18.9 Chronic kidney disease, unspecified
CPT/HCPCS: 99214

== ENCOUNTER → 2022-10-03 09:30 | Outpatient (BNVA) | payer MEDICAID, SELFPAY | PROVIDERS: PCP Internal Medicine; Visit Provider Urology | DX: N20.0 Calculus of kidney (principal); E11.9 Type 2 diabetes mellitus without complications; I10 Essential (primary) hypertension; E78.00 Pure hypercholesterolemia, unspecified; N18.9 Chronic kidney disease, unspecified; Z12.5 Encounter for screening for malignant neoplasm of prostate | CPT/HCPCS: 99212 ==

== ENCOUNTER → 2022-11-15 10:39 | Outpatient (REF) | payer MEDICAID, SELFPAY ==
--- NOTE | 2022-11-15 10:41 | CA_ITS ---
Transthoracic Echocardiogram Patient (Last, First, Middle): Luis Daniel Jacobsen M Gender: Male Date of : 1975 Age: 47 Procedure Date: 11/15/2022 Procedure Type: Transthoracic Echocardiogram Location: OP Height: 172.72 cm Weight: 99.79 kg BSA: 2.13 m2 Heart Rate: 70 bpm BP: 125 / 80 mmHg Scientific Diver: CHERYL Rodriguez MD: Jorge Alberto Madera MD Stuntman: Surinder Adame MD Symptoms: I25.10 - Atherosclerotic heart disease of [place] coronary artery without... Study Quality: Adequate ECG Rhythm: Sinus Conclusions: - 1. Normal LV ejection fraction 55-60% 2. Normal cardiac valvular Dopplers 3. Normal RV systolic pressure 4. No gross pericardial effusion Findings Left Ventricle Normal left ventricular size, thickness, and systolic function. The visually estimated ejection fraction is between 55-60%. Spectral Doppler is indicative of a normal filling pattern. Right Ventricle Normal right ventricular cavity size and systolic function. Atria The left atrium is likely dilated. There is no evidence of interatrial shunt. The right atrium is normal in size. Aortic Valve There is mild calcification of the aortic valve. There is no aortic valve stenosis. There is no aortic valve regurgitation. Mitral Valve There is mild anterior and posterior mitral leaflet thickening. There is mild mitral annular calcification. There is trace mitral valve regurgitation. There is no mitral valve stenosis. Pulmonic Valve The pulmonic valve was not well visualized. Tricuspid Valve Normal tricuspid valve structure. There is trace tricuspid valve regurgitation. The right ventricular systolic pressure is normal. The right ventricular systolic pressure is 18 mmHg. Normal right atrial pressure. There is no evidence of pulmonary hypertension. Great Vessels The pulmonary artery was not well visualized. There is no dilatation of the ascending aorta measuring 3.10 cm. Venous The inferior vena cava is normal in size and collapses greater than 50% with inspiration. Pericardium/Pleural There is no evidence of pericardial effusion. Prior Study Comparison No prior study available for comparison. Measurements 2D Linear Measurements IVSd: 1.00 0.6-0.9/0.6-1.0 cm LVIDd: 4.74 3.9-5.3/4.2-5.9 cm LVIDd Index: 2.23 2.4-3.2/2.2-3.1 cm/m2 LVIDs: 3.28 2.0-3.6 cm LVPWd: 0.99 0.7-1.1 cm LA Diam: 3.90 2.7-3.8/3.0-4.0 cm LAIDs Index: 1.83 1.5-2.3 cm/m2 LV Mass: 206.54 67-162/88-224 g LV Mass Index: 96.97 43-95/49-115 g/m2 LVOT Diam: 2.10 3.0+(-)1.3 cm 2D Systolic Function EF 4C: 59.70 >55% EF 2C: 57.00 >55% EF BiP: 59.50 >55% Mitral Valve MV Pk E: 0.76 MV PK A: 0.60 MV Decel Time: 210.00 E/A: 1.30 E'Lateral: 9.90 E'Medial: 7.62 E/E' Med: 9.90 E/E' Lat: 7.70 PHT: 62.00 MVA PHT: 3.55 Decel [place]: 3.61 Aortic Valve AoV Pk Sudeep: 1.29 AoV Mn Sudeep: 0.94 AoV VTI: 0.27 AoV Pk Grad: 7.00 Aov Mn Grad: 4.00 SITA Cont.VTI: 2.35 LVOT LVOT Pk Sudeep: 0.96 LVOT Mn Sudeep: 0.69 LVOT VTI: 0.19 LVOT Pk Grad: 4.00 LVOT Mn Grad: 2.00 LVOT Diam: 2.10 LVOT Area: 3.46 Diastolic Function MV Pk E: 0.76 MV Pk A: 0.60 E/A: 1.30 E'Medial: 7.62 E/E' Med: 9.90 E' Laterial: 9.90 E/E' Lat: 7.70 Right Ventricle TAPSE (mm): 16.90 TVS' Sudeep: 7.62 Tricuspid Valve TR Pk Sudeep: 1.94 TR Pk Grad: 15.00 RA Press: 3.00 RVSP: 18.00 Great Vessels Aorta Sinus of Valsalva: 3.40 2.0-3.5 cm Ao Asc: 3.10 2.1-3.4 cm Pulmonary Valve PV Pk Sudeep: 0.88 Peak PV Grad: 3.00 Updated in Other Vendor System with Status of Final Surinder Adame MD electronically signed on 11/16/2022 2:21:17 PM with status of Final
== END ==
LOC: HO.CARD 10:39
PROVIDERS: PCP Internal Medicine; Visit Provider Internal Medicine
DX: R07.2 Precordial pain (principal); I25.10 Atherosclerotic heart disease of native coronary artery without angina pectoris
CPT/HCPCS: 93306

== ENCOUNTER → 2022-11-15 10:41 | Outpatient (BNV) | payer MEDICAID, SELFPAY | PROVIDERS: PCP Internal Medicine; Visit Provider Internal Medicine Cardiovascular Disease | DX: I34.81 Nonrheumatic mitral (valve) annulus calcification (principal); I35.8 Other nonrheumatic aortic valve disorders | CPT/HCPCS: 93306 ==

== ENCOUNTER → 2022-11-18 10:48 | Outpatient (REF) | payer MEDICAID, SELFPAY ==
--- NOTE | 2022-11-18 10:50 | CA_ITS ---
Acquisition Time: 2022-11-18 11:10:27 Total Exercise Time: 00:09:27 Test Indications: Chest Pain Medications: Protocol: BURTON Max HR: 166 BPM 97% of Pred: 171 BPM Max BP: 150/084 mmHG Max Work Load: 10.1 METS Exercise stress test exercise 9 min 27 sec of Burton protocol achieving 97% MPHR, with mild SOB, no chest discomfort, with isolated PVCs, with normotensive response to exercise, without EKG changes. Echo images obtained by tech at rest and immedately post peak exercise. Definity contrast used. Test reviewed with Deep Vaughn. STRESS ECHO : Technique : Images were obtained at rest and immediately post exercise within 1 minute. Definity was injected during both phases to enhance endocardial definition. Images were obtained in multiple views and compared side to side. Findings : At rest images are of adequate quality. LV systolic function is normal with normal wall motion. Post exercise images are of fair quality. There is good augmentation of overall LV systolic function with no regional wall motion abnormalities. Conclusion : Stress echo is negative for ischemia Referred By: Jorge Alberto Madera Overread By: PAM LOVE MD
== END ==
LOC: HO.CARD 10:48
PROVIDERS: Visit Provider Internal Medicine
DX: R07.2 Precordial pain (principal)
CPT/HCPCS: 93350; Q9957

== ENCOUNTER → 2022-11-18 10:50 | Outpatient (BNV) | payer MEDICAID, SELFPAY | PROVIDERS: Visit Provider Internal Medicine Cardiovascular Disease | DX: R06.02 Shortness of breath (principal) | CPT/HCPCS: 93016; 93018; 93350; 93352 ==

== ENCOUNTER 2023-03-03 14:14 | Outpatient (REF) | payer MEDICAID, SELFPAY ==
[2023-03-03 16:39] LABS: Anion Gap 10 (12-20); Blood Urea Nitrogen 17 mg/dL (9-16); Carbon Dioxide 28 mmol/L (22-29); Chloride 106 mmol/L (96-108); Estimated Glomerular Filt Rate > 60; Glucose Random 84 mg/dL (60-115); Potassium 4.1 mmol/L (3.3-5.1); Sodium 140 mmol/L (135-145)
== END 2023-03-03 14:15 | disposition home or self-care (01) ==
LOC: HO.HHCL 14:14
PROVIDERS: Visit Provider Internal Medicine
DX: E11.65 Type 2 diabetes mellitus with hyperglycemia (principal)
CPT/HCPCS: 36415; 80048

== ENCOUNTER 2023-05-08 16:52 | Outpatient (REF) | payer MEDICAID, SELFPAY | END 2023-05-08 16:53 | disposition home or self-care (01) | LOC: HO.HOSX 16:52 | PROVIDERS: Visit Provider Physician Assistant | DX: Z13.89 Encounter for screening for other disorder (principal) ==

== ENCOUNTER 2024-05-31 14:46 | Outpatient (AMB) | payer MEDICAID, SELFPAY ==
--- NOTE | 2024-05-31 14:49 | A.OFFVIS_ITS ---
Vital Signs 05/31/24 14:52 Height 5 ft 8 in Weight 224 lb 13.944 oz BMI 34.2 BP 116/70 Blood Pressure Location Lt brachial Position Sitting Pulse 73 Intake Visit Reasons: Blood in stools Intake Note: Luis Daniel presents in the office as a new patient for blood in the stools. CC: He states that he is actively bleeding almost every day. States that he does not get constipation or diarrhea. Everything that he eats he will pains in the stomach and bleeding in the stools - pains in the epigastric region after eating. Supervisor Housecleaner Required: Yes Supervisor Housecleaner Name: [id number] Vel Allergies No Known Allergies Allergy (Verified 10/03/22 10:12) HPI Comments Details: 48 y.o M who is here for rectal bleeding. Seen with Danial BRADLEY for maori interpretation. Reports onset x 1 year. Report streaks of blood on wiping and in toilet bowel. No rectal pain or pressure. Stool is formed and brown. No straining. No abd pain. No unintentional weight loss. No recent labs available to check for anemia. Has never had a colo. No family history of colon cancer. [facility] Medical History High cholesterol HTN (hypertension) Diabetes Surgical History Hx of removal of cyst Hx of eye surgery Family History Father No problems noted. Mother No problems noted. Brother Heart replaced by transplant Social History Alcohol intake: never Current occupational status: unemployed Current occupation: Left Handed Review of Systems Const All systems reviewed & are unremarkable except as noted in HPI and below Physical Exam Vital Signs: Last Vital Signs Pulse 73 05/31/24 14:52 BP 116/70 05/31/24 14:52 BMI result Body Mass Index 34.2 No apparent distress Nonicteric Abdomen soft, nondistended rectal: no ext hemorrhoids, digital exam attempted but aborted due to discomfort expressed by pt Alert and oriented x3, normal gait Assessment & Plan Assessment & Plan (1) Bright red rectal bleeding: Code(s): K62.5 - Hemorrhage of anus and rectum Category: Medical Plan Differentials include hemorrhoidal bleeding most likely. Other Ddx include anal fissure though typically with painful defecation, SURS, proctitis. Plan: - Avoid constipation and straining. Can take OTC senna or miralax to manage constipation. - avoid lifting heavy weights - increase hydration and fiber intake - anusol supp x 10-12 days - Check CBC and iron studies - colo to be booked - PEG prep Rxed and instructions reviewed. Handout provided as well. Follow-up after colonoscopy Orders: Orders IRON PROFILE Today K62.5 - Hemorrhage of anus and rectum Ferritin Today K62.5 - Hemorrhage of anus and rectum Complete Blood Count no Diff Today K62.5 - Hemorrhage of anus and rectum Medications: New peg 3350-electrolytes 236-22.74-6.74 -5.86 gram (Golytely) as per split prep instructions, until fecal effluent is clear 240 mL PO Q10M 4,000 mL 0RF colonoscopy hydrocortisone acetate (Anusol-HC) 25 mg KS BEDTIME 12 ea 0RF K64.9 - Unspecified hemorrhoids Coding Level of Care Code New Pt Level 4 (72339) Diagnoses Bright red rectal bleeding K62.5
[2024-05-31 14:52] VITALS: BP 116/70; PULSE 73; BMI 34.2
--- OUTSIDE RECORDS SUMMARY | 2024-05-31 14:59 | XMS_ITS | Encounter Summary ---
Author Organization [facility] Address [address] [place] [address] Care Team Providers Care Rn Picu Name Role Phone Kym Patel MD Primary Care Provide r Reason for Visit * Reason Onset Date Comments Nurse Triage 09/06/2022 Encounter Details Date Type Department Care Team (Late st Contact Info) Description 09/06/2022 Telephone [facility] [address] [place] [address] Kym Patel MD [address] [place] [address] Nurse Triage Social History Tobacco Use Types Packs/Day Years Used Date Smoking Tobacco: Never Smokeless Tobacco: Never Depression Answer Date Recorded Patient Health Questionnaire-9 Score 3 07/05/2022 Depression Answer Date Recorded Patient Health Questionnaire-2 Score 0 07/05/2022 Sex and Gender Information Value Date Recorded Sex Assigned at Male 12/20/2021 10:21 AM EDT Legal Sex Male 10:21 AM EDT Gender Identity Male 12/20/2021 10:21 AM EDT Sexual Orientation Straight 12/20/2021 10 :21 AM EDT documented as of this encounter Miscellaneous Notes * Telephone Encounter - Abbie Mejia RN - 09/07/2022 10:28 AM EDT Called pt. Via [employer] formation fracturing operator Felisha Hernandez. Advised pt. Per PCP to stop AM dose of Glimepiride pill for low blood sugars and if blood sugar is still low during day to also stop PM dose of Glimepiride. Pt. States he did stop his morning dose of Glimepiride this am and his current Blood sugaris 111 and he is feeling much better with no dizziness. FU appt. Made for 09/30/22 at 1045 am with PCP for FU when pt. Gets back from [facility]. Advised pt. That he can call [facility] while in [facility] if he has concerns or questions. Will forward this note to PCP as an FYI. * Telephone Encounter - Abbie Mejia RN - 09/06/2022 4:08 PM EDT Called pt. Via [employer] formation fracturing operator [phone] teresa. No answer. Retail Sales Merchandiser left message on pt. Voice mail to call back [facility] nurses at [phone]. RE: Low blood sugar. Called pt. Back without formation fracturing operator line. Advised pt. To answer phone and I would call pt. Back. Called pt. Back via [employer] formation fracturing operator [id number] Kym. Pt. States that his blood sugars have been low at around 66-72 x 5 days. Pt. States it is making him feel dizzy. Pt. Has been doing Trulicity injections x 1 month. Pt. Is currently in [place] and is not coming back to [place] until 09/25/22. Pt. Is looking for advise on how to elevate his blood sugars and if Trulicity could be causing low blood sugars. Advised pt. That if blood sugar goes <70 to drink 4 oz of orange juice or apple juice and a piece of toast with small amount of peanut butter to increase blood sugar level. Pt. States his blood sugar is low between 2pm- until he goes to bed. Fasting blood sugars in am are between 130-138. I advised pt. That if his blood sugars are at 70 or below and feels dizzy to go to ED. Do you want to add anything to pt. Regimen for afternoon? Or give different advise for low blood sugars? Please advise. * Telephone Encounter - Julita Alegre - 09/06/2022 4:06 PM EDT Symptom: Low Blood Sugar - Caller Reports Outcome: Schedule an urgent appointment (within 1 hour) or talk to a nurse or provider soon Reason: Getting worse The caller accepted this outcome Please contact pt at [phone] (Peruvian speaker) documented in this encounter Plan of Treatment Not on file documented as of this encounter Visit Diagnoses Not on filedocumented in this encounter Additional Health Concerns Assessment Noted Time PHQ-9 Depression Total Score: 3 07/06/19 23 1:04 PM EDT documented as of this encounter Care Teams Rn Picu Relationship Specialty Start Date End Date Kym Patel MD [address] [place] [address] PCP - General Family Medicine 06/28/18 documented as of this encounter
--- OUTSIDE RECORDS SUMMARY | 2024-05-31 14:59 | XMS_ITS | Clinical Summary ---
Author Organization [facility] Address [address] [facility] [address] [place] [address] Phone Care Team Providers Care Director Clinical Research Name Role Phone Kym Patel MD Primary Care Provide r Allergies No known active allergies Medications atorvastatin (LIPITOR) 40 MG tablet Take 40 mg by mouth 3 Active Invokana 300 MG tablet TAKE 1 TABLET BY MOUTH BEFORE BREAKFAST 3 Active Trulicity 0.75 MG/0.5ML solution pen-injector INJECT ONE PEN (=0.75MG) SUBCUTANEOUSLY ONCE A WEEK DIRECTED 3 Active gabapentin (NEURONTIN) 800 MG tablet Take 800 mg by mouth in the morning and 800 mg at noon and 800 mg in the evening. 3 Active glimepiride (AMARYL) 4 MG tablet Take 4 mg by mouth in the morning and 4 mg in the evening. 3 Active lisinopril 40 MG tablet Take 20 mg by mouth every morning 3 Active pioglitazone (ACTOS) 30 MG tablet Take 30 mg by mouth every morning 3 Active Active Problems Problem Noted Date Diagnosed Date Essential hypertension 07/05/2022 3 Overview (10/19/2022): Last Assessment & Plan: - Aerobic exercise to reduce BP. Initial goal of 30 min walk 3-5x/week. Increase as tolerated. - low-sodium diet (goal: <2g/day) and heart healthy diet such as DASH to reduce BP and prevent ASCVD. - Home BP monitoring 1-2 x day with goal of <140/90. - Seek immediate medical attention for chest pain, palpitations, SOB, syncope, or sudden changes in mental status. - Do not change or discontinue current prescriptions without first consulting health care provider Renal stone 07/05/2022 10/19/2022 Overview (10/19/2022): Last Assessment & Plan: I advise to avoid NSAIds, drink plenty of water, glucose and blood pressure control Resolved Problems Problem Noted Date Diagnosed Date Resolved Date Precordial pain 09/30/2022 10/19/2022 10/19/2022 Overview (10/19/2022): Last Assessment & Plan: I advise not to miss his cardiology appointments ED precautions reviewed with patient Acute back pain with sciatica 07/05/2022 10/19/2022 10/19/2022 Balanitis 07/05/2022 10/19/2022 10/19/2022 Melanocytic nevus 07/05/2022 10/19/2022 10/19/2022 Neck pain 07/05/2022 10/19/2022 10/19/2022 Pain in left shoulder 07/05/2022 10/19/20222022 Pain of knee region 07/05/2022 10/19/2022 10/20/19 23 Overview (10/19/2022): Last Assessment & Plan: I will start him on tramadol PRN Patient will need contract with me Type 2 diabetes mellitus with hyperglycemia 07/05/2022 10/19/2022 10/19/2022 Overview (10/19/2022): Last Assessment & Plan: - Lab Results Component Value Date HGBA1C 6.1 (A) 09/30/2022 HGBA1C 8.3 (A) 07/05/2022 HGBA1C 8.8 (H) 08/18/2021 - Lab Results Component Value Date MICROALBUR 0.8 08/18/2021 CREATININE 1.17 09/30/2022 - - Continue lifestyle modifications - I discontinue glimipride c/w rest of medications Immunizations Immunization Administration Dates Next Due Influenza, Quadrivalent, Preservative Free 12/30 Tdap 12/30/2020 Family History Medical History Relation Comments Other Brother Kidney disease Mother Relation Status Comments Brother Mother Social History Tobacco Use Types Packs/Day Years Used Date Smoking Tobacco: Never Passive Smoke Exposure: Never Smokeless Tobacco: Never Tobacco Cessation:Counseling Given: No Alcohol Use Standard Drinks/Week Comments Never 0 (1 standard drink = 0.6 oz pur e alcohol) Sex and Gender Information Value Date Recorded Sex Assigned at Not on file Legal Sex Male 2:37 PM EDT Gender Identity Not on file Sexual Orientation Not on file Last Filed Vital Signs Vital Sign Reading Time Taken Comments Blood Pressure 115/69 11/09/2022 4:24 PM EDT Pulse 70 11/09/2022 4:24 PM EDT Temperature - - Respiratory Rate - - Oxygen Saturation 97% 10/19/2022 2:56 PM EDT Inhaled Oxygen Concentration - - Weight 105 kg (231 lb) 10/19/2022 2:56 PM EDT Height - - Body Mass Index - - Plan of Treatment Health Maintenance Due Date Last Done Comments Pneumococcal Vaccine: Peds ( 0 to 5 Years) and At-Risk Patients (6 to 49 Years) (1 of 2 - PCV) 07[birth year]31/1981 Hepatitis B Vaccine (1 of 3 - 19+ 3-dose series) 07/30 Colorectal Cancer Screening: Annual FOBT 2022 Colorectal Cancer Screening: Colonoscopy 2022 Colorectal Cancer Screening: Sigmoidoscopy 2022 Influenza Vaccine (Season Ended) 2024 12/31/19 21 Insurance Medicaid [place] Medicaid [place] Care Teams Director Clinical Research Relationship Specialty Start Date End Date Kym Patel MD [address] [place] [phone] PCP - General Internal Medicine 10/10/22
--- OUTSIDE RECORDS SUMMARY | 2024-05-31 14:59 | XMS_ITS | Clinical Summary ---
Author Organization [employer] Address [address] [facility] 7[address] [place] [address] Care Team Providers Care Fur Blowing Machine Attendant Name Role Phone Kym Patel MD Primary Care Provide r Allergies No known active allergies Medications acetaminophen (Tylenol) 500 MG tabletIndication s:Chronic pain of right knee Take 2 tablets (1,000 mg) by mouth every 6 (six) hours if needed for moderate pain or fever for up to 25 doses. 50 tablet 02/16/20 22 Active Additional Information Patient not taking.Reported on 09/30/2022 Alcohol Swabs (Alcohol Prep) 70 % pads 100 each Once daily. USE TWICE DAILY TO TEST BLOOD SUGAR 100 each 07/13/19 23 Active TRUEplus Lancets 33G misc 100 each 2 times daily. TEST BLOOD SUGAR TWICE DAILY 100 each 07/13/19 23 Active glucose blood (FREESTYLE LITE) test strip Check by fingerstick route 2 times every day 100 each 07/13/19 23 Active gabapentin (Neurontin) 800 MG tabletIndication s:Chronic pain syndrome TAKE 1 TABLET BY MOUTH THREE TIMES DAILY 90 tablet 1 09/08/19 23 Active lidocaine (Lidoderm) 5 % patchIndications :Chronic pain of right knee APPLY 1 PATCH TOPICALLY TO SKIN, LEAVE ON FOR 12 HOURS AND OFF FOR 12 HOURS DIRECTED 30 patch 2 10/22/19 23 Active lisinopril 20 MG tabletIndication s:Essential hypertension TAKE 1 TABLET BY MOUTH EVERY MORNING 90 tablet 3 10/11/19 24 Active rosuvastatin (Crestor) 40 MG tabletIndication s:Essential hypertension TAKE 1 TABLET BY MOUTH EVERY DAY 90 tablet 1 11/20/19 24 Active empagliflozin (Jardiance) 25 MGIndications:Ty pe 2 diabetes mellitus with hyperglycemia, without long-term current use of insulin ([facility]) Take 1 tablet (25 mg) by mouth Once per day. 90 tablet 1 02/09/20 24 025 Active pioglitazone (Actos) 30 MG tabletIndication s:Hyperlipidemia associated with type 2 diabetes mellitus ([facility]) TAKE 1 TABLET BY MOUTH EVERY MORNING 90 tablet 1 02/19/20 24 Active traZODone (Desyrel) 50 MG tabletIndication s:Primary insomnia TAKE 1 TABLET BY MOUTH AT BEDTIME 30 tablet 03/22/19 25 Active Trulicity 0.75 MG/0.5ML solution auto-injectorInd ications:Type 2 diabetes mellitus with hyperglycemia, without long-term current use of insulin ([facility]) INJECT ONE PEN (=0.75MG) SUBCUTANEOUSLY ONCE A WEEK DIRECTED 2 mL 11 05/01/19 25 Active Active Problems Problem Noted Date Diagnosed Date Blood in stool, germain 02/09/2024 Other fatigue 02/09/2024 Tinea pedis of right foot 02/09/2024 Scalp lesion 02/09/2024 Primary insomnia 05/08/2023 Assessment & Plan (05/10/2023 11:32 AM EDT): Sleep hygiene counseling done I will start him on trazodone 50mg at bed time Pain of left heel 03/03/2023 Acute pain of left shoulder 03/03/2023 Atypical nevus of scalp 03/03/2023 Colon cancer screening 03/03/2023 LILIANA (acute kidney injury) 09/30/2022 Assessment & Plan (09/30/2022 4:40 PM EDT): I advise to avoid NSAIds, drink plenty of water, glucose and blood pressure control Precordial pain 09/30/2022 Assessment & Plan (09/30/2022 4:42 PM EDT): I advise not to miss his cardiology appointments ED precautions reviewed with patient Type 2 diabetes mellitus with hyperglycemia 06/20 Assessment & Plan (02/09/2024 4:40 PM EST): Diabetes is: controlled - Lab Results Component Value Date HGBA1C 6.5 (A) 02/09/2024 HGBA1C 6.4 (A) 03/03/2023 HGBA1C 6.1 (A) 09/30/2022 - Lab Results Component Value Date MICROALBUR <5.0 09/30/2022 CREATININE 1.08 03/03/2023 -Changes: I discontinue invokana and put him on jardiance - Diabetic eye exam:up to date - Diabetic foot exam:up to date - Continue lifestyle modifications - Continue current medications - Follow up: 3 months Assessment & Plan (05/10/2023 11:34 AM EDT): Diabetes is: controlled - Lab Results Component Value Date HGBA1C 6.4 (A) 03/03/2023 HGBA1C 6.1 (A) 09/30/2022 HGBA1C 8.3 (A) 07/05/2022 - Lab Results Component Value Date MICROALBUR <5.0 09/30/2022 CREATININE 1.08 03/03/2023 -Changes: none refill for trulicity today - Diabetic eye exam:up to date - Diabetic foot exam:up to date - Continue lifestyle modifications - Continue current medications - Follow up: 3 months Assessment & Plan (03/08/2023 11:44 AM EST): - Lab Results Component Value Date HGBA1C 6.4 (A) 03/03/2023 HGBA1C 6.1 (A) 09/30/2022 HGBA1C 8.3 (A) 07/05/2022 - Lab Results Component Value Date MICROALBUR <5.0 09/30/2022 CREATININE 1.08 03/03/2023 - Diabetic eye exam:referral done - Diabetic foot exam:referral done - Continue lifestyle modifications - Continue current medications Assessment & Plan (09/30/2022 4:42 PM EDT): - Lab Results Component Value Date HGBA1C 6.1 (A) 09/30/2022 HGBA1C 8.3 (A) 07/05/2022 HGBA1C 8.8 (H) 08/18/2021 - Lab Results Component Value Date MICROALBUR 0.8 08/18/2021 CREATININE 1.17 09/30/2022 - - Continue lifestyle modifications - I discontinue glimipride c/w rest of medications Assessment & Plan (07/05/2022 1:37 PM EDT): - Lab Results Component Value Date HGBA1C 8.8 (H) 08/18/2021 HGBA1C 11.5 (H) 04/07/2020 - Lab Results Component Value Date MICROALBUR 0.8 08/18/2021 - Diabetic eye exam: pending - Diabetic foot exam: pending - Continue lifestyle modifications - Continue with invokana and actos, I added today glipizide 5mg once a day Neck pain 07/05/2022 Kidney stone 07/05/2022 Essential hypertension 07/05/2022 Assessment & Plan (02/09/2024 4:39 PM EST): See HPI - Aerobic exercise to reduce BP. Initial [...] prescriptions without first consulting health care provider Assessment & Plan (05/10/2023 11:32 AM EDT): - Aerobic exercise to reduce BP. Initial [...] prescriptions without first consulting health care provider Assessment & Plan (03/08/2023 11:44 AM EST): Maintenance: BMP: up to date Lipid Panel: I change atorvastatin to rosuvastatin because patient did not like the smell of the tablet? ASCVD Risk: rosuvastatin 40mg - Aerobic exercise to reduce BP. Initial [...] prescriptions without first consulting health care provider Assessment & Plan (09/30/2022 4:40 PM EDT): - Aerobic exercise to reduce BP. Initial [...] prescriptions without first consulting health care provider Assessment & Plan (07/05/2022 1:35 PM EDT): - Aerobic exercise to reduce BP. Initial [...] prescriptions without first consulting health care provider Chronic left shoulder pain 07/05/2022 Balanitis 07/05/2022 Acute back pain with sciatica 07/05/2022 Atypical mole 07/05/2022 Atypical chest pain 07/05/2022 Bilateral chronic knee pain 07/05/2022 Assessment & Plan (07/05/2022 1:42 PM EDT): I will start him on tramadol PRN Patient will need contract with me Encounters Date Type Department Care Team Description 05/03/2024 Population Health Risk Score [facility] [address] [place] [address], [place] [id number] Provider, Population Health Generic 04/30/2024 Refill [facility] [address] [place] [address] Kym Patel MD Type 2 diabetes mellitus with hyperglycemia, without long-term current use of insulin ([facility]) 03/22/2024 Refill [facility] [address] [place] [address] Kym Patel MD Primary insomnia from Last 3 Months Immunizations Name Administration Dates Next Due Influenza injectable quadrivalent preservative f ree 12/30/2020 Tdap 12/30/2020 Social History Tobacco Use Types Packs/Day Years Used Date Smoking Tobacco: Never Passive Smoke Exposure: Never Smokeless Tobacco: Never Tobacco Cessation:Counseling Given: Not Answered Alcohol Use Standard Drinks/Week Comments Never 0 (1 standard drink = 0.6 oz pur e alcohol) Depression Answer Date Recorded Patient Health Questionnaire-9 Score 3 07/05/2022 Housing Stability Answer Date Recorded What is your housing situation today? I do not have housing (Staying with others, in a hotel, in a intermediate, living outside on the street, on a beach, in a car, or in a park 11/29/[address] you li ve. Do you have problems with any of the following? None of the above 11/29/2023 Food Insecurity Answer Date Recorded Within the past 12 months, y ou worried that your food would run out before you got money to buy more: Never True 11/29/2023 Within the past 12 months,th e food you bought just didn't last and you didn't have enough money to get more: Never True 10/2023 Transportation Answer Date Recorded In the past 12 months, has l ack of transportation kept you from medical appts, meetings, work or from getting things needed for daily living? No 11/29/2023 Utilities Answer Date Recorded In the past 12 months, has t he electric, gas, oil or water company threatened to shut off services in your home? No 11/29/2023 Depression Answer Date Recorded Patient Health Questionnaire-2 Score 0 07/05/2022 Internet Access Answer Date Recorded Internet Access Q1 Yes 11/29/2023 Internet Access Q2 Not on file 11/29/2023 Sex and Gender Information Value Date Recorded Sex Assigned at Male 12/20/2021 10:21 AM EDT Legal Sex Male 10:21 AM EDT Gender Identity Male 12/20/2021 10:21 AM EDT Sexual Orientation Straight 12/20/2021 10 :21 AM EDT Last Filed Vital Signs Vital Sign Reading Time Taken Comments Blood Pressure 140/82 02/09/2024 3:34 PM EST Pulse 78 02/09/2024 3:34 PM EST Temperature 35.4 ??C (95.7 ??F) 02/09/2024 3:34 PM ES T Respiratory Rate 12 02/09/2024 3:34 PM EST Oxygen Saturation 96% 02/09/2024 3:34 PM EST Inhaled Oxygen Concentration - - Weight 108 kg (237 lb 9.6 oz) 02/09/2024 3:34 PM EST Height 172.7 cm (5' 8 ) 02/09/2024 3:34 PM EST Body Mass Index 36.13 02/09/2024 3:34 PM EST Plan of Treatment Health Maintenance Due Date Last Done Comments CT Colonography 1973 Colonoscopy 1973 Colorectal Cancer Screening 1973 FIT DNA/Cologuard 1973 FIT 1973 FOBT 1973 HIV Screening 1973 Sigmoidoscopy 1973 Diabetes: Foot Exam 07/31/1983 Eye Exam 07/31/1983 Alcohol/Substance Use Screening 1985 Family Planning (PISQ) 1988 Hepatitis C Screening 07/31/1991 Hepatitis B Vaccines (1 of 3 - 19+ 3-dose series) 1992 Pneumococcal Vaccine: 50+ Years (1 of 2 - PCV) 1992 Depression Screening 07/06/2023 07/05/2022, 07/06/19 23 Zoster Vaccines (1 of 2) 07/31/2023 Diabetes: Urine Protein Screening 10/01/2023 09/30/2022, 08/18/2021, 12/30/2020, Additional history exists Lipid Panel 10/01/2023 09/30/2022, 07/22, 04/07/2020 COVID-19 Vaccine ( season) 2023 12/31/2020 Influenza Vaccine (#1) 2023 12/30/2020 Diabetes: Hemoglobin A1C 08/09/2024 024, 03/03/2023, 09/30/2022, Additional history exists SDOH Screening 11/28/2024 11/29/2023 Tobacco Screening 02/08/2025 02/09/2024 DTaP/Tdap/Td Vaccines (2 - Td or Tdap) 12/30/2030 12/30/2020 RSV Patients and Patients Aged 60 years or older (1 - 1-dose 75+ series) 2048 HIB Vaccines Aged Out No longer eligi ble based on patient's age to complete this topic HPV Vaccines Aged Out No longer eligi ble based on patient's age to complete this topic Hepatitis A Vaccines Aged Out No long er eligible based on patient's age to complete this topic IPV Vaccines Aged Out No longer eligi ble based on patient's age to complete this topic Meningococcal Vaccine Aged Out No tabitha caty eligible based on patient's age to complete this topic RSV under 20 months Aged Out No longe r eligible based on patient's age to complete this topic Rotavirus Vaccines Aged Out No longer eligible based on patient's age to complete this topic Procedures Procedure Name Priority Date/Time Associated Diagnosis Comments POCT GLYCATED HEMOGLOBIN, TOTAL Routine 02/09/2024 3:36 PM EST Type 2 diabetes mellitus with hyperglycemia, without long-term current use of insulin ([facility]) ALBUMIN, RANDOM URINE W/CREATININE Routine 09/30/2022 12:09 PM EDT LIPID PANEL, STANDARD Routine 09/30/2022 12:05 PM EDT Type 2 diabetes mellitus with hyperglycemia, without long-term current use of insulin ([facility]) from Last 3 Months or Most Recently Relevant to Health Maintenance Results * (ABNORMAL) POCT HGB A1C (02/09/2024 3:36 PM EST) Hemoglobin A1C 6.5(A) 4.0 - 6.0 % QC Media Lot # [id number] Lot# Expiration Date [id number] Blood 02/09/2024 3:36 PM EST Kym Mcdonough MD POINT OF CARE TEST EN TER/EDIT ORDERABLES Final Result * Albumin, Random Urine W/Creatinine (09/30/2022 12:09 PM EDT) Creatinine, Urine 96.35 mg/dL [facility] Microalbumin Urine <5.0 mg/L [facility] Microalbum Creatinine Ratio Ur TNP ug/mg cr [facility] Comment:Unable to calculate albumin/creatinine ratio due to lowmicroalbumin or creatinine result. 09/30/2022 12:0 9 PM EDT 09/30/2022 4:40 PM EDT Kym Mcdonough MD LAB URINE ORDERABLES Final Result [facility] [address] [place] [address] [phone] * Lipid Panel, Standard (09/30/2022 12:05 PM EDT) Triglycerides 127 mg/dL [facility] Comment:Desirable Triglyceri de: less than 150 mg/dLBorderline High Triglyceride 150-199 mg/dLHigh Triglyceride: 200-499 mg/dLVery High Triglyceride: greater than or equal to 5OO mg/dL Cholesterol 139 mg/dL [facility] Comment:Desirable Cholestero l: less than 200 mg/dLBorderline High Cholesterol: 200-239 mg/dLHigh Cholesterol: greater than 239 mg/dL LDL Cholesterol Calculated 73 mg/dl [facility] Comment:Desirable LDL: less than 100 mg/dLNear Optimal/Above Optimal LDL: 110- 129 mg/dLBorderline High LDL: 130-159 mg/dLHigh LDL: 160-189 mg/dLVery High LDL: greater than or equal to 190 mg/dL HDL Cholesterol 41 mg/dL [facility] Comment:Desirable HDL: great er than 40 mg/dL Note: This HDL assay may give artificially low results in patients with liver disease. Blood Venous blood specimen / Unknown 09/30/2022 12:05 PM EDT 09/30/2022 1:49 PM EDT Kym Mcdonough MD LAB BLOOD ORDERABLES Final Result [facility] [address] [place] [address] [phone] from Last 3 Months or Most Recently Relevant to Health Maintenance Insurance [facility] C3 HS FULL Care Teams Fur Blowing Machine Attendant Relationship Specialty Start Date End Date Kym Patel MD [address] [place] [address] PCP - General Family Medicine 06/28/18
--- OUTSIDE RECORDS SUMMARY | 2024-05-31 14:59 | XMS_ITS | Encounter Summary ---
Author Organization [employer] [facility] Address [address] [facility] 7t [place] [address] Care Team Providers Care Cotton Weigher Name Role Phone Kym Patel MD Primary Care Provide r Encounter Details Date Type Department Care Team (Late st Contact Info) Description 09/09/2022 Orders Only [facility] [address] [place] [address] Paulette Shepherd LPN Social History Tobacco Use Types Packs/Day Years [...] AM EDT documented as of this encounter Plan of Treatment Not on file documented as of this encounter Visit Diagnoses Not on filedocumented in this encounter Additional Health Concerns Assessment Noted Time PHQ-9 Depression Total Score: 3 07/06/19 23 1:04 PM EDT documented as of this encounter Care Teams Cotton Weigher Relationship Specialty Start Date End Date Kym Patel MD [address] [place] [address] PCP - General Family Medicine 06/28/18 documented as of this encounter
--- OUTSIDE RECORDS SUMMARY | 2024-05-31 15:00 | XMS_ITS | Encounter Summary ---
Author Organization [employer] Address [address] [facility] 7[address] [place] [address] Care Team Providers Care Fertilizer Applicator Name Role Phone Kym Patel MD Primary Care Provide r Reason for Visit * Reason Comments Med Refill Encounter Details Date Type Department Care Team ([facility] st Contact Info) Description 04/26/2023 Refill [facility] [address] [place] [address] Kym Patel MD [address] [place] [address] Chronic pain syndrome Social History Tobacco Use Types Packs/Day Years Used Date Smoking Tobacco: Never Smokeless Tobacco: Never Depression Answer Date Recorded Patient Health Questionnaire-9 Score 3 07/05/2022 Housing Stability Answer Date Recorded What is your housing situation today? I have elizabethkris hernandez 12/23/[address] you li ve. Do you have problems with any of the following? None of the above 12/23/2022 Food Insecurity Answer Date Recorded Within the past 12 months, y ou worried that your food would run out before you got money to buy more: Never True 12/23/2022 Within the past 12 months,th e food you bought just didn't last and you didn't have enough money to get more: Never True 04/2022 Transportation Answer Date Recorded In the past 12 months, has l ack of transportation kept you from medical appts, meetings, work or from getting things needed for daily living? No 12/23/2022 Utilities Answer Date Recorded In the past 12 months, has t he electric, gas, oil or water company threatened to shut off services in your home? No 12/23/2022 Depression Answer Date Recorded Patient Health Questionnaire-2 [...] documented as of this encounter Visit Diagnoses Diagnosis Chronic pain syndrome documented in this encounter Additional Health Concerns Assessment Noted Time PHQ-9 Depression Total Score: 3 07/06/19 23 1:04 PM EDT documented as of this encounter Care Teams Fertilizer Applicator Relationship Specialty Start Date End Date Kym Patel MD [address] [place] [id number] PCP - General Family Medicine 06/28/18 documented as of this encounter
--- OUTSIDE RECORDS SUMMARY | 2024-05-31 15:00 | XMS_ITS | Encounter Summary ---
Author Organization [employer] [facility] Address [address] [facility] 7t [place] [address] Care Team Providers Care Yardage Estimator Name Role Phone Kym Patel MD Primary Care Provide r Encounter Details Date Type Department Care Team (Latest Contact Info) Description 04/21/2020 Abstract [facility] CONVERSIONS Dental, Provider, DDS Social History Tobacco Use Types Packs/Day Years Used Date Smoking Tobacco: Never Assessed Sex and Gender Information Value Date Recorded Sex Assigned at Male 12/20/2021 10:21 AM EDT Legal Sex Male 10:21 AM EDT Gender Identity Male 12/20/2021 10:21 AM EDT Sexual Orientation Straight 12/20/2021 10 :21 AM EDT documented as of this encounter Plan of Treatment Not on file documented as of this encounter Visit Diagnoses Not on filedocumented in this encounter Care Teams Yardage Estimator Relationship Specialty Start Date End Date Kym Patel MD [address] [place] [address] PCP - General Family Medicine 06/28/18 documented as of this encounter
--- OUTSIDE RECORDS SUMMARY | 2024-05-31 15:00 | XMS_ITS | Encounter Summary ---
Author Organization [employer] Address [address] [facility] 7t [place] [address] Care Team Providers Care Driver Sales Name Role Phone Kym Patel MD Primary Care Provide r Reason for Visit * Reason Comments Med Refill Encounter Details Date Type Department Care Team ([facility] st Contact Info) Description 06/25/2023 Refill [facility] [address] [place] [address] Kym Patel MD [address] [place] [address] Social History Tobacco Use Types Packs/Day Years Used Date Smoking Tobacco: Never Passive Smoke Exposure: Never Smokeless Tobacco: Never Depression Answer Date [...] documented as of this encounter Care Teams Driver Sales Relationship Specialty Start Date End Date Kym Patel MD [address] [place] [id number] PCP - General Family Medicine 06/28/18 documented as of this encounter
--- OUTSIDE RECORDS SUMMARY | 2024-05-31 15:00 | XMS_ITS | Encounter Summary ---
Author Organization [employer] Address [address] [facility] [address] [place] [address] Care Team Providers Care Engineering Test Mechanic Name Role Phone Kym Patel MD Primary Care Provide r Reason for Visit * Reason Comments Med Refill Encounter Details Date Type Department Care Team ([facility] st Contact Info) Description 04/10/2023 Refill [facility] [address] [place] [address] Kym Patel MD [address] [place] [address] Hyperlipidemia associated with type 2 diabetes mellitus (CMS/HCC) Social History Tobacco Use Types Packs/Day Years Used Date Smoking Tobacco: Never Smokeless Tobacco: Never Depression Answer Date Recorded Patient Health Questionnaire-9 Score 3 07/05/2022 Housing Stability Answer Date Recorded What is your housing situation today? I have elizabethkirs hernandez 12/23/[address] you [...] as of this encounter Visit Diagnoses Diagnosis Hyperlipidemia associated with type 2 diabetes mellitus (CMS/HCC) documented in this encounter Additional Health Concerns Assessment Noted Time PHQ-9 Depression Total Score: 3 07/06/19 23 1:04 PM EDT documented as of this encounter Care Teams Engineering Test Mechanic Relationship Specialty Start Date End Date Kym Patel MD [address] [place] [phone] PCP - General Family Medicine 06/28/18 documented as of this encounter
== END 2024-05-31 15:39 | disposition home or self-care (01) ==
PROVIDERS: PCP Internal Medicine; Visit Provider Internal Medicine
DX: K62.5 Hemorrhage of anus and rectum (principal)
CPT/HCPCS: 99204

== ENCOUNTER 2024-05-31 14:46 | Outpatient (REF) | payer MEDICAID, SELFPAY ==
--- OUTSIDE RECORDS SUMMARY | 2024-05-31 15:39 | XMS_ITS | Encounter Summary ---
Author Organization [facility] Address [address] [facility] 7t [place] [address] Care Team Providers Care Automotive Collision Estimator Name Role Phone Kym Patel MD Primary Care Provide r Reason for Visit * Reason Comments Med Refill Encounter Details Date Type Department Care Team ([facility] st Contact Info) Description 04/10/2023 Refill [facility] [address] [place] [address] Kym Patel MD [address] [place] [address] Hyperlipidemia associated with type 2 diabetes mellitus [...] documented as of this encounter Care Teams Automotive Collision Estimator Relationship Specialty Start Date End Date Kym Patel MD [address] [place] [id number] PCP - General Family Medicine 06/28/18 documented as of this encounter
--- OUTSIDE RECORDS SUMMARY | 2024-05-31 15:39 | XMS_ITS | Clinical Summary ---
Author Organization [employer] Address 75 [facility] 7t [place] [address] Care Team Providers Care Qc Manager Name Role Phone Kym Patel MD Primary [...] hyperglycemia, without long-term current use of insulin ([facility]) Take 1 tablet (25 mg) by mouth Once per day. 90 tablet 1 02/09/20 24 025 Active pioglitazone (Actos) 30 MG tabletIndication s:Hyperlipidemia associated with type 2 diabetes mellitus ([facility]) TAKE 1 TABLET BY MOUTH EVERY MORNING 90 tablet 1 02/19/20 24 Active traZODone (Desyrel) 50 MG tabletIndication s:Primary insomnia TAKE 1 TABLET BY MOUTH AT BEDTIME 30 tablet 03/22/19 25 Active Trulicity 0.75 MG/0.5ML solution auto-injectorInd ications:Type 2 diabetes mellitus with hyperglycemia, without long-term current use of insulin ([facility]) INJECT ONE PEN (=0.75MG) SUBCUTANEOUSLY ONCE A [...] Risk Score [facility] Department [address] [place] [address], [place] [address] Provider, Population Health Generic 04/30/2024 Refill [facility] [address] [place] [address] Kym Patel MD Type 2 diabetes mellitus with hyperglycemia, without long-term current use of insulin ([facility]) 03/22/2024 Refill [facility] [address] [place] [address] Kym Patel MD Primary insomnia from Last [...] with others, in a hotel, in a fdc, living outside on the street, on a [...] hyperglycemia, without long-term current use of insulin ([facility]) ALBUMIN, RANDOM URINE W/CREATININE Routine 09/30/2022 12:09 PM EDT LIPID PANEL, STANDARD Routine 09/30/2022 12:05 PM EDT Type 2 diabetes mellitus with hyperglycemia, without long-term current use of insulin ([facility]) from Last 3 Months or Most Recently Relevant to Health Maintenance Results * (ABNORMAL) POCT HGB A1C (02/09/2024 3:36 PM EST) Hemoglobin A1C 6.5(A) 4.0 - 6.0 % QC Media Lot # [id number] Lot# Expiration Date [id number] Blood 02/09/2024 3:36 PM EST Kym Mcdonough MD POINT OF CARE TEST EN TER/EDIT ORDERABLES Final Result * Albumin, Random Urine W/Creatinine (09/30/2022 12:09 PM EDT) Creatinine, Urine 96.35 mg/dL [facility] Microalbumin Urine <5.0 mg/L [facility] Microalbum Creatinine Ratio Ur TNP ug/mg cr [facility] Comment:Unable to calculate albumin/creatinine ratio due to lowmicroalbumin or creatinine result. 09/30/2022 12:0 9 PM EDT 09/30/2022 4:40 PM EDT Kym Mcdonough MD LAB URINE ORDERABLES Final Result [facility] [address] [place] [address] [phone] * Lipid Panel, Standard (09/30/2022 12:05 PM EDT) Triglycerides 127 mg/dL [facility] Comment:Desirable Triglyceri de: less than 150 mg/dLBorderline High Triglyceride 150-199 mg/dLHigh Triglyceride: 200-499 mg/dLVery High Triglyceride: greater than or equal to 5OO mg/dL Cholesterol 139 mg/dL [facility] Comment:Desirable Cholestero l: less than 200 mg/dLBorderline High Cholesterol: 200-239 mg/dLHigh Cholesterol: greater than 239 mg/dL LDL Cholesterol Calculated 73 mg/dl [facility] Comment:Desirable LDL: less than 100 mg/dLNear Optimal/Above Optimal LDL: 110- 129 mg/dLBorderline High LDL: 130-159 mg/dLHigh LDL: 160-189 mg/dLVery High LDL: greater than or equal to 190 mg/dL HDL Cholesterol 41 mg/dL [facility] Comment:Desirable HDL: great er than 40 mg/dL Note: This HDL assay may give artificially low results in patients with liver disease. Blood Venous blood specimen / Unknown 09/30/2022 12:05 PM EDT 09/30/2022 1:49 PM EDT Kym Mcdonough MD LAB BLOOD ORDERABLES Final Result [facility] [address] [place] [address] [phone] from Last 3 Months or Most Recently Relevant to Health Maintenance Insurance [facility] C3 HS FULL Care Teams Qc Manager Relationship Specialty Start Date End Date Kym Patel MD [address] [place] [address] PCP - General Family Medicine 06/28/18
--- OUTSIDE RECORDS SUMMARY | 2024-05-31 15:39 | XMS_ITS | Encounter Summary ---
Author Organization [employer] [facility] Address [address] [facility] 7t [place] [address] Care Team Providers Care Grade Recorder Name Role Phone Kym Patel MD Primary Care Provide r Encounter Details Date Type Department Care Team (Latest Contact Info) Description 04/21/2020 Abstract [facility] CONVERSIONS Dental, Provider, DDS Social History Tobacco [...] on filedocumented in this encounter Care Teams Grade Recorder Relationship Specialty Start Date End Date Kym Patel MD [address] [place] [address] PCP - General Family Medicine 06/28/18 documented as of this encounter
--- OUTSIDE RECORDS SUMMARY | 2024-05-31 15:39 | XMS_ITS | Encounter Summary ---
Author Organization [employer] Address 75 [facility] 7t [place] [address] Care Team Providers Care Self Propelled Hot Mix Roller Operator Name Role Phone Kym Patel MD Primary Care Provide r Reason for Visit * Reason Comments Med Refill Encounter Details Date Type Department Care Team ([facility] st Contact Info) Description 04/26/2023 Refill [facility] [address] [place] [address] Kym Patel MD [address] [place] [address] Chronic pain syndrome Social History Tobacco Use [...] documented as of this encounter Care Teams Self Propelled Hot Mix Roller Operator Relationship Specialty Start Date End Date Kym Patel MD [address] [place] [address] PCP - General Family Medicine 06/28/18 documented as of this encounter
--- OUTSIDE RECORDS SUMMARY | 2024-05-31 15:39 | XMS_ITS | Encounter Summary ---
Author Organization [employer] [facility] Address 75 [facility] 7t [place] [address] Care Team Providers Care Rn Pediatric Icu Name Role Phone Kym Patel MD Primary Care Provide r Reason for Visit * Reason Onset Date Comments Nurse Triage 09/06/2022 Encounter Details Date Type Department Care Team (Late st Contact Info) Description 09/06/2022 Telephone [facility] MEDICINE [address] [place] [address] Kym Patel MD 230 [place] [address] Nurse Triage Social History Tobacco Use Types [...] 09/07/2022 10:28 AM EDT Called pt. Via [employer] translator/interpreter Felisha Hernandez. Advised pt. Per PCP to [...] for FU when pt. Gets back from [facility]. Advised pt. That he can call [facility] while in [facility] if he has concerns or questions. Will forward this note to PCP as an FYI. * Telephone Encounter - Abbie Mejia RN - 09/06/2022 4:08 PM EDT Called pt. Via [employer] translator/interpreter [phone] teresa. No answer. Organ Builder left message on pt. Voice mail to call back [facility] nurses at [phone]. RE: Low blood sugar. Called pt. Back without translator/interpreter line. Advised pt. To answer phone and I would call pt. Back. Called pt. Back via [employer] translator/interpreter [id number] Kym. Pt. States that his blood sugars have been low at around 66-72 x 5 days. Pt. States it is making him feel dizzy. Pt. Has been doing Trulicity injections x 1 month. Pt. Is currently in [place] and is not coming back to [place] until 09/25/22. Pt. Is looking for advise [...] accepted this outcome Please contact pt at [phone] (Djiboutian speaker) documented in this encounter Plan of Treatment Not on file documented as of this encounter Visit Diagnoses Not on filedocumented in this encounter Additional Health Concerns Assessment Noted Time PHQ-9 Depression Total Score: 3 07/06/19 23 1:04 PM EDT documented as of this encounter Care Teams Rn Pediatric Icu Relationship Specialty Start Date End Date Kym Patel MD [address] [place] [address] PCP - General Family Medicine 06/28/18 documented as of this encounter
--- OUTSIDE RECORDS SUMMARY | 2024-05-31 15:39 | XMS_ITS | Encounter Summary ---
Author Organization [employer] Address 75 [facility] 7t [place] [address] Care Team Providers Care Zipper Trimmer Hand Name Role Phone Kym Patel MD Primary Care Provide r Reason for Visit * Reason Comments Med Refill Encounter Details Date Type Department Care Team ([facility] st Contact Info) Description 06/25/2023 Refill [facility] [address] [place] [address] Kym Patel MD [address] [place] [address] Social History Tobacco Use Types Packs/Day Years [...] documented as of this encounter Care Teams Zipper Trimmer Hand Relationship Specialty Start Date End Date Kym Patel MD [address] [place] [address] PCP - General Family Medicine 06/28/18 documented as of this encounter
--- OUTSIDE RECORDS SUMMARY | 2024-05-31 15:39 | XMS_ITS | Encounter Summary ---
Author Organization [employer] [facility] Address 75 [facility] 7t [place] [address] Care Team Providers Care Industrial Maintenance Repairer Helper Name Role Phone Kym Patel MD Primary Care Provide r Encounter Details Date Type Department Care Team (Late st Contact Info) Description 09/09/2022 Orders Only [facility]INE [address] [place] [address] Paulette Shepherd LPN Social History Tobacco Use [...] documented as of this encounter Care Teams Industrial Maintenance Repairer Helper Relationship Specialty Start Date End Date Kym Patel MD [address] [place] [address] PCP - General Family Medicine 06/28/18 documented as of this encounter
[2024-05-31 16:13] LABS: Hemoglobin 14.3 g/dl (14.0-18.0); Mean Corpuscular HGB Conc 32.5 g/dl (31.0-36.0); Mean Corpuscular Hemoglobin 31.4 pg (27.0-33.0); Mean Corpuscular Volume 96.5 fL (80.0-98.0); Mean Platelet Volume 10.3 fL (9.4-12.4); Platelet Count 209 X10*3/uL (160-400); Red Blood Count 4.56 X10*6/uL (4.60-5.80); Red Cell Distribution Width 13.7 % (11.0-16.0); White Blood Count 6.8 X10*3/uL (4.8-10.8)
[2024-05-31 16:37] LABS: Iron 73 mcg/dL (45-160); Percent Iron Saturation 25 % (15-50); Total Iron Binding Capacity 293 mcg/dL (228-428); Unsaturated Iron Binding 220 ug/dL
[2024-05-31 16:51] LABS: Ferritin 191 ng/mL (20-250)
== END 2024-05-31 14:47 | disposition home or self-care (01) ==
LOC: HO.LAB 14:46
PROVIDERS: PCP Internal Medicine; Visit Provider Internal Medicine
DX: K62.5 Hemorrhage of anus and rectum (principal)
CPT/HCPCS: 36415; 82728; 83540; 85027; 99202

== ENCOUNTER 2025-02-16 08:58 | Emergency (ER) | payer MEDICAID, SELFPAY ==
--- NOTE | ~2025-02-16 | CT_ITS ---
CLINICAL HISTORY: Pain tenderness lower abdomen --- Additional Notes or Special Instructions: NO IV ACCESS 1120 CF Exam: CT Abdomen and Pelvis With IV Contrast Comparison: None Findings: The liver density is homogeneous No biliary abnormalities The spleen is normal in size No pancreatic ductal dilatation No hydronephrosis. No urinary tract calculi or obstruction. Normal bowel caliber. There are very few colon diverticula The appendix is normal. No free fluid/free air No vascular abnormalities. No adenopathy. Bladder outline is smooth No suspicious skeletal lesions. Impression: Unremarkable CT of the abdomen and pelvis. This document has been electronically signed by: Karlos John MD on 02/16/2025 13:40:09
[2025-02-16 08:59] VITALS: BP 141/76; PULSE 82; RESP 20; TEMP 37; O2SAT 98; BMI 35.6
[2025-02-16 09:14] LABS: MANUAL DIFF FLAG NO
[2025-02-16 09:15] LABS: Hematocrit 44.2 % (42.0-52.0); Hemoglobin 14.6 g/dl (14.0-18.0); Imm Gran Abs Auto 0.07 X10*3/uL (0.00-0.03); Imm Gran Pct Auto 1.2 % (0.0-0.4); Lymphocytes Absolute Auto 2.2 X10*3/uL (1.2-4.9); Mean Corpuscular HGB Conc 33.0 g/dl (31.0-36.0); Mean Corpuscular Hemoglobin 31.5 pg (27.0-33.0); Mean Corpuscular Volume 95.3 fL (80.0-98.0); NRBC Abs Auto 0.000 X10*3/uL (0.0-0.012); NRBC Pct Auto 0.0 /100WBC (0.0-0.2); Platelet Count 199 X10*3/uL (160-400); Red Blood Count 4.64 X10*6/uL (4.60-5.80); White Blood Count 5.8 X10*3/uL (4.8-10.8)
[2025-02-16 09:36] LABS: Alanine Aminotransferase 26 U/L (0-40); Albumin Level 4.4 g/dL (3.5-5.0); Alkaline Phosphatase 86 U/L (39-117); Anion Gap 12 (12-20); Aspartate Amino Transferase 17 U/L (5-37); Blood Urea Nitrogen 21 mg/dL (9-16); Calcium 9.6 mg/dL (8.4-10.2); Carbon Dioxide 26 mmol/L (22-29); Chloride 107 mmol/L (96-108); Creatinine Clr Calc Pharmacy 83.2; Estimated Glomerular Filt Rate > 60; Lipase 32 U/L (8-78); Potassium 4.4 mmol/L (3.3-5.1); Sodium 141 mmol/L (135-145); Total Protein 7.5 g/dL (6.5-8.0)
--- NOTE | 2025-02-16 10:44 | ED.GENADULT ---
HPI - General Adult General Chief complaint: Abdominal Pain Stated complaint: lower extremity pain rectal bleeding Time Seen by Provider: 02/16/25 10:43 History of Present Illness ED Provider: Karo DAIGLE narrative: The patient is a 49-year-old male. He has 2 complaints today. One is rectal bleeding. He says that for over a year he has blood with bowel movements every time he has a bowel movement. He has been trying to get into see a caving guide for a colonoscopy but the patient reports a lot of bureaucratic difficulty in making this happen. His 2nd complaint is lower abdominal pain that he has had for about 4 days. He feels the pain across his lower abdomen and it radiates into both sides of his lower back. To some degree this pain radiates down the right leg. No fever, sweats, chills. No dysuria. No vomiting. Related Data Home Medications ?Medication ?Instructions ?Recorded ?Confirmed gabapentin 800 mg tablet 800 mg PO TID 04/22/22 09/28/22 lancets 33 gauge (TRUEplus Lancets) #100 ea 04/22/22 09/28/22 dulaglutide 0.75 mg/0.5 mL mg subcut QWEEK 09/28/22 09/28/22 subcutaneous pen injector (Trulicity) pioglitazone 30 mg tablet 30 mg PO QAM 09/28/22 09/28/22 lisinopril 20 mg tablet 20 mg PO QAM 05/31/24 rosuvastatin 40 mg tablet 40 mg PO DAILY 05/31/24 Previous Rx's ?Medication ?Instructions ?Recorded hydrocortisone acetate 25 mg 25 mg AL BEDTIME #12 ea 05/31/24 rectal suppository (Anusol-HC) peg 3350-electrolytes 236 240 ml PO Q10M colonoscopy #4,000 05/31/24 gram-22.74 gram-6.74 gram-5.86 mL gram solution (Golytely) acetaminophen 500 mg capsule 1,000 mg (2 x 500 mg) PO Q8H PRN 02/16/25 fever or pain #14 caps cyclobenzaprine 10 mg tablet 10 mg PO TID PRN muscle spasm #14 02/16/25 tabs ibuprofen 400 mg tablet 400 mg PO Q6H PRN pain #14 tabs 02/16/25 Allergies Allergy/AdvReac Type Severity Reaction Status Date / Time No Known Allergies Allergy Verified 02/16/25 09:04 Review of Systems Review of Systems: Yes all other systems are reviewed and are negative [facility] Past Medical History Medical History High cholesterol HTN (hypertension) Diabetes Surgical History Hx of removal of cyst Hx of eye surgery Family History Family History Father No problems noted. Mother No problems noted. Brother Heart replaced by transplant Social History Social History Alcohol intake: never Current occupational status: unemployed Current occupation: Left Handed Physical Exam ED Vital Signs: Vital Signs - 24 hr 02/16/25 08:59 02/16/25 12:44 Temperature 98.6 F Pulse Rate 82 70 Respiratory Rate 20 16 Blood Pressure 141/76 H 111/76 Pulse Oximetry 98 96 Oxygen Delivery Method Room Air Room Air BMI result Body Mass Index 35.6 Const Other: The patient is a 49-year-old male who was awake and alert. He does not appear in obvious distress. Orientation/consciousness: patient oriented x3 HENMT Other: The face is symmetrical. ?Mucous membranes moist. Eyes Other: Pupils are round equal, conjunctivae are clear, extraocular movements intact Neck Neck: Yes normal visual inspection and Yes no lymphadenopathy Resp Effort & Inspection: normal respiratory effort Auscultation: clear to auscultation bilaterally Cardio Rate: regular rate Rhythm: regular rhythm Heart sounds: S1 normal heart sound present and S2 normal heart sound present GI Other: Some mild diffuse abdominal tenderness. Rectal exam revealed normal rectal tone. There were no masses. There was no blood in the rectum. Skin Other: The skin is dry and unremarkable Neuro General: patient oriented x3, gait normal, tone normal, moves all extremities, no focal motor deficits and CN's II-XI intact bilaterally Extrem Other: There is no calf swelling or tenderness. No asymmetry. No peripheral edema. Medications Administered Discontinued Medications Generic Name Dose Route Start Last Admin Trade Name Freq PRN Reason Stop Dose Admin Iohexol 100 ml 02/16/25 12:19 02/16/25 12:19 Iohexol 350 Mg/Ml 100 Ml Infus..Btl IV 02/16/25 12:20 85 ml ONCE ONE Administration Medical Decision Making Medical Decision Making [facility] Narrative: The patient is a 49-year-old male who reports very long history of passing blood per rectum with bowel movements. More acutely he is complaining of 4 days of abdominal discomfort. His CT scan is unremarkable. His rectal exam showed no bleeding at the moment. His labs do not show any signs of blood loss or other concerning findings. The patient was reassured. I explained that he probably has a internal hemorrhoids. He should continue his efforts to follow up with Gastroenterology and should also follow up with his regular doctor. His description of his abdominal pain suggests that it might be some kind of a low back pain syndrome. Lab Data 02/16/25 09:08 02/16/25 09:08 Labs: Lab Results 02/16/25 Range/Units 09:08 WBC 5.8 (4.8-10.8) X10*3/uL RBC 4.64 (4.60-5.80) X10*6/uL Hgb 14.6 (14.0-18.0) g/dl Hct 44.2 (42.0-52.0) % MCV 95.3 (80.0-98.0) fL MCH 31.5 (27.0-33.0) pg MCHC 33.0 (31.0-36.0) g/dl RDW 13.5 (11.0-16.0) % Plt Count 199 (160-400) X10*3/uL MPV 9.9 (9.4-12.4) fL Immature Gran % (Auto) 1.2 H (0.0-0.4) % Neut % (Auto) 47.6 (45-73) % Lymph % (Auto) 37.7 (20-40) % Putnam % (Auto) 10.9 (2-11) % Eos % (Auto) 1.9 (0-4) % Baso % (Auto) 0.7 (0-2) % Lymph # (Auto) 2.2 (1.2-4.9) X10*3/uL [place]nam # (Auto) 0.6 (0.1-1.2) X10*3/uL Eos # (Auto) 0.1 (0.0-0.4) X10*3/uL Baso # (Auto) 0.0 (0.0-0.2) X10*3/uL Abs Immat Gran (auto) 0.07 H (0.00-0.03) X10*3/uL Absolute Neuts (auto) 2.8 (2.0-8.3) x10*3/uL Absolute Nucleated RBC 0.000 (0.0-0.012) X10*3/uL Nucleated RBC % (auto) 0.0 (0.0-0.2) /100WBC Sodium 141 (135-145) mmol/L Potassium 4.4 (3.3-5.1) mmol/L Chloride 107 (96-108) mmol/L Carbon Dioxide 26 (22-29) mmol/L Anion Gap 12 (12-20) BUN 21 H (9-16) mg/dL Creatinine 1.24 (0.5-1.4) mg/dL Estim Creat Clear Calc 83.2 Estimated GFR > 60 Random Glucose 179 H (60-115) mg/dL Calcium 9.6 (8.4-10.2) mg/dL Total Bilirubin 0.4 (0.0-1.0) mg/dL Direct Bilirubin 0.1 (0.0-0.5) mg/dL AST 17 (5-37) U/L ALT 26 (0-40) U/L Alkaline Phosphatase 86 (39-117) U/L Total Protein 7.5 (6.5-8.0) g/dL Albumin 4.4 (3.5-5.0) g/dL Lipase 32 (8-78) U/L Discharge Plan Discharge Clinical Impression: Rectal bleeding, Lower abdominal pain, Low back pain Patient Disposition: Home, Self-Care Additional Instructions: You were not showing any signs of dangerous bleeding. You may have internal hemorrhoids. Please continue your efforts to see a caving guide to discuss this further. Your lower abdominal pain may be a manifestation of low back pain. For this pain you may use acetaminophen and ibuprofen. I have sent prescriptions for these medications to the pharmacy on [address]. I have also sent a prescription for a medication called cyclobenzaprine. This is a muscle relaxant that you can use when pain is severe. No driving on this medication. It can make you drowsy. Therefore please follow up soon with your regular doctor and continue your efforts to see a caving guide. Return to the emergency room if significantly worse. Prescriptions: New cyclobenzaprine 10 mg tablet 10 mg PO TID PRN (Reason: muscle spasm) Qty: 14 0RF ibuprofen 400 mg tablet 400 mg PO Q6H PRN (Reason: pain) Qty: 14 0RF acetaminophen 500 mg capsule 1,000 mg PO Q8H PRN (Reason: fever or pain) Qty: 14 0RF No Action gabapentin 800 mg tablet 800 mg PO TID (DME) lancets [TRUEplus Lancets] 33 gauge misc See Rx Instructions .ROUTE BID Qty: 100 Rx Instructions: As directed Trulicity 0.75 mg/0.5 mL pen injector subcut QWEEK pioglitazone 30 mg tablet 30 mg PO QAM lisinopril 20 mg tablet 20 mg PO QAM rosuvastatin 40 mg tablet 40 mg PO DAILY peg 3350-electrolytes [Golytely] 236-22.74-6.74 -5.86 gram recon soln 240 ml PO Q10M Qty: 4000 0RF Rx Instructions: as per split prep instructions, until fecal effluent is clear hydrocortisone acetate [Anusol-HC] 25 mg suppository 25 mg AL BEDTIME Qty: 12 0RF Referrals: Kym Patel MD [Primary Care Provider, Internal Medicine] Interventions: ED Discharge Assessment Last Done: 02/16/25 14:35 Discharge Date/Time: 02/16/25 14:36 Print Language: Slovak
--- OUTSIDE RECORDS SUMMARY | 2025-02-16 10:44 | XMS_ITS | Patient Health Record ---
Author Organization [facility] Address [address] [place] [address], [address] [place] [address] Support Name Relationship Address Phone MAUREEN ROBBINS Guarantor Unknown [phone] Reason For Referral No Information Plan Of Treatment No Information
--- OUTSIDE RECORDS SUMMARY | 2025-02-16 10:44 | XMS_ITS | Encounter Summary ---
Author Organization [employer] Address [address] [facility] 7t [place] [address] Care Team Providers Care Pie Filler Name Role Phone Kym Patel MD Primary Care Provide r Reason for Visit * Reason Comments Med Refill Encounter Details Date Type Department Care Team ([facility] st Contact Info) Description 06/25/2023 Refill [facility] [address] [place] [address] Kym Patel MD 230 [place], [place] [phone] Social History Tobacco Use Types Packs/Day Years [...] as of this encounter Plan of Treatment Upcoming Encounters Date Type Department Care Team (Late st Contact Info) Description 03/25/2025 9:30 AM EST Office Visit [facility] [address] [place] [address] Kym Patel MD 230 [place] [address] 05/19/2025 1:00 PM EDT Office Visit [facility] OPTOMETRY [address] [place] [address] Bernardino, Charmaine, OD [address] [place] [address] documented as of this encounter Visit Diagnoses Not on filedocumented in this encounter Additional Health Concerns Assessment Noted Time PHQ-9 Depression Total Score: 3 07/06/19 23 1:04 PM EDT documented as of this encounter Care Teams Pie Filler Relationship Specialty Start Date End Date Kym Patel MD [address] [place] [address] PCP - General Family Medicine 06/28/18 documented as of this encounter
--- OUTSIDE RECORDS SUMMARY | 2025-02-16 10:44 | XMS_ITS | Encounter Summary ---
Author Organization [employer] Address [address] [facility] 7 [place] [address] Care Team Providers Care Business Representative Name Role Phone Kym Patel MD Primary Care Provide r Encounter Details Date Type Department Care Team (Late Contact Info) Description 09/09/2022 Orders Only [facility] MEDICINE [address] [place] [phone] Paulette Shepherd LPN Social History Tobacco Use [...] Description 03/25/2025 9:30 AM EST Office Visit [facility]INE 230 [place] [address] Kym Patel MD [address] [place] [address] 05/19/2025 1:00 PM EDT Office Visit [facility] OPTOMETRY [address] [place] [address] Bernardino, Charmaine, OD [address] [place] [address] documented as of this encounter Visit Diagnoses Not on filedocumented in this encounter Additional Health Concerns Assessment Noted Time PHQ-9 Depression Total Score: 3 07/06/19 23 1:04 PM EDT documented as of this encounter Care Teams Business Representative Relationship Specialty Start Date End Date Kym Patel MD [address] [place] [address] PCP - General Family Medicine 06/28/18 documented as of this encounter
--- OUTSIDE RECORDS SUMMARY | 2025-02-16 10:44 | XMS_ITS | Encounter Summary ---
Author Organization [employer] Address 75 [facility] 7t [place] [address] Care Team Providers Care Tax Services Professional Name Role Phone Kym Patel MD Primary Care Provide r Reason for Visit * Reason Onset Date Comments Nurse Triage 09/06/2022 Encounter Details Date Type Department Care Team ([facility] st Contact Info) Description 09/06/2022 Telephone [facility] MEDICINE [address] [place], [place] [phone] Kym Patel MD [address] [place], [place] [phone] Nurse Triage Social History Tobacco Use Types [...] 09/07/2022 10:28 AM EDT Called pt. Via [employer] wood gang sawyer Felisha Hernandez. Advised pt. Per PCP to [...] for FU when pt. Gets back from [facility]. Advised pt. That he can call [facility] while in [facility] if he has concerns or questions. Will forward this note to PCP as an FYI. * Telephone Encounter - Abbie Mejia RN - 09/06/2022 4:08 PM EDT Called pt. Via [employer] [phone] teresa. No answer. Hot Dip Galvanizer left message on pt. Voice mail to call back [facility] nurses at [phone]. RE: Low blood sugar. Called pt. Back without wood gang sawyer line. Advised pt. To answer phone and I would call pt. Back. Called pt. Back via [employer] wood [employer] sawyer [phone] Kym. Pt. States that his blood sugars have been low at around 66-72 x 5 days. Pt. States it is making him feel dizzy. Pt. Has been doing Trulicity injections x 1 month. Pt. Is currently in [place] and is not coming back to [place] until 09/25/22. Pt. Is looking for advise [...] accepted this outcome Please contact pt at [phone] (British speaker) documented in this encounter Plan of Treatment Upcoming Encounters Date Type Department Care Team (Late st Contact Info) Description 03/25/2025 9:30 AM EST Office Visit [facility] MEDICINE [address] [place] [address] Kym Patel MD [address] [place] [address] 05/19/2025 1:00 PM EDT Office Visit [facility] OPTOMETRY [address] [place] [address] Charmaine Lebron, OD [address] [place] [address] documented as of this encounter Visit Diagnoses Not on filedocumented in this encounter Additional Health Concerns Assessment Noted Time PHQ-9 Depression Total Score: 3 07/06/19 23 1:04 PM EDT documented as of this encounter Care Teams Tax Services Professional Relationship Specialty Start Date End Date Kym Patel MD [address] [place] [address] PCP - General Family Medicine 06/28/18 documented as of this encounter
--- OUTSIDE RECORDS SUMMARY | 2025-02-16 10:44 | XMS_ITS | Clinical Summary ---
Author Organization [facility] Address [facility] [address] [place] [address] Phone Care Team Providers Care Residential Plumber Name Role Phone Kym Patel MD Primary [...] Health Maintenance Due Date Last Done Comments Hepatitis B Vaccine (1 of 3 - 19+ 3-dose series) 07/30 Pneumococcal Vaccine: 50+ Years (1 of 2 - PCV) 993 Colorectal Cancer Screening: Annual FOBT 2022 Colorectal Cancer Screening: Colonoscopy 2022 Colorectal Cancer Screening: Sigmoidoscopy 2022 Influenza Vaccine (#1) 2024 12/30/2020 Insurance Medicaid [place] Medicaid [place] Care Teams Residential Plumber Relationship Specialty Start Date End Date Kym Patel MD [address] [place] [phone] PCP - General Internal Medicine 10/10/22
--- OUTSIDE RECORDS SUMMARY | 2025-02-16 10:44 | XMS_ITS | Encounter Summary ---
Author Organization [employer] Address 75 [facility] 7t [place] [address] Care Team Providers Care Drum Handler Name Role Phone Kym Patel MD Primary Care Provide r Encounter Details Date Type Department Care Team (Latest Contact Info) Description 04/21/2020 Abstract [facility] CONVERSIONS Dental, Provider, DDS Social History Tobacco [...] Description 03/25/2025 9:30 AM EST Office Visit [facility] MEDICINE [address] [place] [address] Kym Patel MD [address] [place] [address] 05/19/2025 1:00 PM EDT Office Visit [facility] OPTOMETRY [address] [place] [address] BernardinoCharmaine fuller, OD [address] [place] [address] documented as of this encounter Visit Diagnoses Not on filedocumented in this encounter Care Teams Drum Handler Relationship Specialty Start Date End Date Kym Patel MD [address] [place] [address] PCP - General Family Medicine 06/28/18 documented as of this encounter
--- OUTSIDE RECORDS SUMMARY | 2025-02-16 10:44 | XMS_ITS | Encounter Summary ---
Author Organization [employer] Address 75 [facility] 7t [place] [address] Care Team Providers Care Sponge Hooker Name Role Phone Kym Patel MD Primary Care Provide r Reason for Visit * Reason Comments Med Refill Encounter Details Date Type Department Care Team ([facility] st Contact Info) Description 04/10/2023 Refill [facility] [address] [place], [place] [phone] Kym Patel MD [address] [place], [place] [phone] Hyperlipidemia associated with type 2 diabetes mellitus [...] Description 03/25/2025 9:30 AM EST Office Visit [facility] [address] [place] [address] Kym Patel MD [address] [place] [address] 05/19/2025 1:00 PM EDT Office Visit [facility] OPTOMETRY [address] [place] [address] Bernardino, Charmaine, OD [address] [place] [address] documented as of this encounter Visit Diagnoses Diagnosis Hyperlipidemia associated with type 2 diabetes mellitus (HCC) documented in this encounter Additional Health Concerns Assessment Noted Time PHQ-9 Depression Total Score: 3 07/06/19 23 1:04 PM EDT documented as of this encounter Care Teams Sponge Hooker Relationship Specialty Start Date End Date Kym Patel MD [address] [place] [address] PCP - General Family Medicine 06/28/18 documented as of this encounter
--- OUTSIDE RECORDS SUMMARY | 2025-02-16 10:44 | XMS_ITS | Encounter Summary ---
Author Organization [employer] Address 75 [facility] 7t [place] [address] Care Team Providers Care Solar Tech Name Role Phone Kym Patel MD Primary Care Provide r Reason for Visit * Reason Comments Med Refill Encounter Details Date Type Department Care Team ([facility] st Contact Info) Description 04/26/2023 Refill [facility] MEDICINE [address] [place] [address] Kym Patel MD [address] [place], [place] [phone] Chronic pain syndrome Social History Tobacco Use [...] Description 03/25/2025 9:30 AM EST Office Visit [facility] MEDICINE [address] [place] [address] Kym Patel MD [address] [place] [address] 05/19/2025 1:00 PM EDT Office Visit [facility] OPTOMETRY [address] [place] [address] Bernardino, Charmaine, OD [address] [place] [address] documented as of this encounter Visit Diagnoses Diagnosis Chronic pain syndrome documented in this encounter Additional Health Concerns Assessment Noted Time PHQ-9 Depression Total Score: 3 07/06/19 23 1:04 PM EDT documented as of this encounter Care Teams Solar Tech Relationship Specialty Start Date End Date Kym Patel MD [address] [place], [place] [phone] PCP - General Family Medicine 06/28/18 documented as of this encounter
--- OUTSIDE RECORDS SUMMARY | 2025-02-16 10:44 | XMS_ITS | Clinical Summary ---
Author Organization [facility] [employer] Address [address] [place] [address] Care Team Providers Care Double Reamer Operator Name Role Phone Kym Patel MD Primary Care Provide r Allergies No known active allergies Medications acetaminophen (Tylenol) 500 MG tabletIndicatio ns:Chronic pain of right knee Take 2 tablets (1,000 mg) by mouth every 6 (six) hours if needed for moderate pain or fever for up to 25 doses. 50 tablet 022 Active Additional Information Patient not taking.Reported on 09/30/2022 gabapentin (Neurontin) 800 MG tabletIndicatio ns:Chronic pain syndrome TAKE 1 TABLET BY MOUTH THREE TIMES DAILY 90 tablet 1 023 Active lidocaine (Lidoderm) 5 % patchIndication s:Chronic pain of right knee APPLY 1 PATCH TOPICALLY TO SKIN, LEAVE ON FOR 12 HOURS AND OFF FOR 12 HOURS DIRECTED 30 patch 2 023 Active rosuvastatin (Crestor) 40 MG tabletIndicatio ns:Essential hypertension TAKE 1 TABLET BY MOUTH EVERY DAY 90 tablet 1 024 Active traZODone (Desyrel) 50 MG tabletIndicatio ns:Primary insomnia TAKE 1 TABLET BY MOUTH AT BEDTIME 30 tablet 025 Active Trulicity 0.75 MG/0.5ML solution auto-injectorIn dications:Type 2 diabetes mellitus with hyperglycemia, without long-term current use of insulin ([facility]) INJECT ONE PEN (=0.75MG) SUBCUTANEOUSLY ONCE A WEEK DIRECTED 2 mL 11 02/06/20 25 3:15 PM EST 025 Active Jardiance 25 MGIndications:T ype 2 diabetes mellitus with hyperglycemia, without long-term current use of insulin (HCC) TAKE 1 TABLET BY MOUTH ONCE DAILY 30 tablet 3 025 Active pioglitazone (Actos) 30 MG tabletIndicatio ns:Hyperlipidem ia associated with type 2 diabetes mellitus (HCC) TAKE 1 TABLET BY MOUTH EVERY DAY IN THE MORNING 90 tablet 1 02/01/20 25 4:48 PM EST 025 Active lisinopril 20 MG tabletIndicatio ns:Essential hypertension TAKE 1 TABLET BY MOUTH EVERY MORNING 90 tablet 3 02/06/20 25 3:15 PM EST 025 Active Alcohol Swabs (Alcohol Prep) 70 % padsIndications :Type 2 diabetes mellitus with hyperglycemia, without long-term current use of insulin ([facility]) 1 each 2 times daily. USE TWICE DAILY TO TEST BLOOD SUGAR 100 each 02/12/20 11:48 AM EST 025 Active glucose blood (FREESTYLE LITE) test stripIndication s:Type 2 diabetes mellitus with hyperglycemia, without long-term current use of insulin ([facility]) Check by fingerstick route 2 times every day 100 each 02/12/20 25 11:48 AM EST 025 Active TRUEplus Lancets 33G miscIndications :Type 2 diabetes mellitus with hyperglycemia, without long-term current use of insulin ([facility]) 100 each 2 times daily. TEST BLOOD SUGAR TWICE DAILY 100 each 02/12/20 25 11:48 AM EST 025 Active Alcohol Swabs (Alcohol Prep) 70 % pads 100 each Once daily. USE TWICE DAILY TO TEST BLOOD SUGAR 100 each 023 2024 Discontinued(R eorder (will not trigger notification to Pharmacy)) TRUEplus Lancets 33G misc 100 each 2 times daily. TEST BLOOD SUGAR TWICE DAILY 100 each 023 2024 Discontinued(R eorder (will not trigger notification to Pharmacy)) glucose blood (FREESTYLE LITE) test strip Check by fingerstick route 2 times every day 100 each 023 2024 Discontinued(R eorder (will not trigger notification to Pharmacy)) Active Problems Problem Noted Date Diagnosed Date [...] Encounters Date Type Department Care Team Description 02/10/2025 Refill [facility] [address] [place] [phone] Kym Patel MD Type 2 diabetes mellitus with hyperglycemia, without long-term current use of insulin (HCC) 01/15/2025 Telephone [facility] [address] [place] [phone] Kym Patel MD feb recall 12/13/2024 Telephone [facility] [address] [place] [address] Kym Patel MD Dec recall 12/02/2024 Telephone [facility] [address] [place] [phone] Kym Patel MD dec recall from Last 3 Months Immunizations Immunization Administration Dates Next Due Influenza injectable quadrivalent [...] is your housing situation today? I have elizabeth hernandez 10/30/[address] you li ve. Do you have problems with any of the following? None of the above 10/30/2024 Food Insecurity Answer Date Recorded Within the [...] 78 02/09/2024 3:34 PM EST Temperature 35.4 C (95.7 F) 02/09/2024 3:34 PM EST Respiratory Rate 12 02/09/2024 3:34 PM EST Oxygen Saturation 96% 02/09/2024 3:34 PM EST Inhaled Oxygen Concentration - - Weight 108 kg (237 lb 9.6 oz) 02/09/2024 3:34 PM EST Height 172.7 cm (5' 8 ) 02/09/2024 3:34 PM EST Body Mass Index 36.13 02/09/2024 3:34 PM EST Plan of Treatment Upcoming Encounters Date Type Department Care Team (Late st Contact Info) Description 03/25/2025 9:30 AM EST Office Visit [facility] [address] [place] [phone] Kym Patel MD [address] [place] [address] 05/19/2025 1:00 PM EDT Office Visit [facility] [address] [place] [address] [place], Charmaine, OD [address] [place] [address] Health Maintenance Due Date Last Done Comments CT Colonography 1973 Colonoscopy 1973 Colorectal Cancer Screening 1973 FIT DNA/Cologuard 1973 FIT 1973 FOBT 1973 HIV Screening 1973 Sigmoidoscopy 1973 Disability Screening 1973 Diabetes: Foot Exam 07/31/1983 Eye Exam 07/31/1983 Alcohol/Substance Use Screening 1985 Family Planning (PISQ) 1988 Hepatitis C Screening 07/31/1991 Hepatitis B Vaccines (1 of 3 - 19+ 3-dose series) 1992 Pneumococcal Vaccine: 50+ Years (1 of 2 - PCV) 1992 Depression Screening 07/06/2023 07/05/2022, 07/06/19 23 RSV Patients and Patients Aged 60 years or older (1 - Risk 50-74 years 1-dose series) 07/31/2023 Zoster Vaccines (1 of 2) 07/31/2023 Lipid Panel 10/01/2023 09/30/2022, 07/22, 04/07/2020 Diabetes: Urine Protein Screening 10/20/2023 10/19/2022, 09/30/2022, 08/18/2021, Additional history exists Diabetes: Hemoglobin A1C 08/09/2024 024, 03/03/2023, 09/30/2022, Additional history exists COVID-19 Vaccine (2 - 2024- season) 2024 12/31/2020 Influenza Vaccine (#1) 2024 12/30/2020 Tobacco Screening 02/08/2025 02/09/2024 SDOH Screening 10/30/2025 10/30/2024 DTaP/Tdap/Td Vaccines (2 - Td or Tdap) 12/30/2030 12/30/2020 HIB Vaccines Aged Out No longer eligi [...] patient's age to complete this topic Meningococcal B Vaccine Aged Out No l onger eligible based on patient's age to complete this topic Meningococcal Vaccine Aged Out No tabitha caty eligible based on patient's age to complete this topic RSV under 20 months Aged Out No longe r eligible based on patient's age to complete this topic Rotavirus Vaccines Aged Out No longer eligible based on patient's age to complete this topic Goals Goal Patient Goal Type Associated Problems Recent Progress Patient-Stated? Author Help patients manage their type 2 diabetes Care Plan Help patients manage their type 2 diabetes No Hayley Wilson MA Weekly blood pressure task Care Plan Weekly blood pressure task No Hayley Wilson MA Help patients manage their type 2 diabetes Care Plan Help patients manage their type 2 diabetes No Hayley Wilson MA Patient has chronic kidney disease Care Plan Patient has chronic kidney disease No Hayley Wilson MA Weekly blood pressure task Care Plan Weekly blood pressure task No Hayley Wilson MA Patient has chronic kidney disease Care Plan Patient has chronic kidney disease Hayley Day MA Weekly blood pressure task Care Plan Weekly blood pressure task No Max Srivastava Weekly blood pressure task Care Plan Weekly blood pressure task No Max Srivastava Patient has chronic kidney disease Care Plan Patient has chronic kidney disease No Max Srivastava Patient has chronic kidney disease Care Plan Patient has chronic kidney disease No Max Srivastava Procedures Procedure Name Priority Date/Time Associated Diagnosis Comments LIPASE Routine 02/16/2025 9:08 AM EST BASIC METABOLIC PANEL Routine 02/16/2025 9:08 AM EST HEPATIC FUNCTION PANEL Routine 02/16/2025 9:08 AM EST CBC WITH AUTO DIFFERENTIAL Routine 02/16/2025 9:08 AM EST POCT GLYCATED HEMOGLOBIN, TOTAL Routine 02/09/2024 3:36 PM EST Type 2 diabetes mellitus with hyperglycemia, without long-term current use of insulin ([facility]) ALBUMIN, RANDOM URINE W/CREATININE Routine 09/30/2022 12:09 PM EDT LIPID PANEL, STANDARD Routine 09/30/2022 12:05 PM EDT Type 2 diabetes mellitus with hyperglycemia, without long-term current use of insulin ([facility]) from Last 3 Months or Most Recently Relevant to Health Maintenance Results * (ABNORMAL) CBC auto differential (02/16/2025 9:08 AM EST) White Blood Count 5.8 4.8 - 10.8 X10*3/uL [facility] Red Blood Count 4.64 4.60 - 5.80 X10*6/uL [facility] Hemoglobin 14.6 14.0 - 18.0 g/dl [facility] Hematocrit 44.2 42.0 - 52.0 % [facility] Mean Corpuscular Volume 95.3 80.0 - 98.0 fL [facility] Mean Corpuscular Hemoglobin 31.5 27.0 - 33.0 pg [facility] Mean Corpuscular HGB Conc 33.0 31.0 - 36.0 g/dl [facility] Red Cell Distribution Width 13.5 11.0 - 16.0 % [facility] Platelet Count 199 160 - 400 X10*3/uL [facility] Mean Platelet Volume 9.9 9.4 - 12.4 fL [facility] Neutrophils Percent Auto 47.6 45 - 73 % [facility] Imm Gran Pct Auto 1.2(H) 0.0 - 0.4 % [facility] Lymphocytes Percent Auto 37.7 20 - 40 % [facility] Monocytes Percent Auto 10.9 2 - 11 % [facility] Eosinophils Percent Auto 1.9 0 - 4 % [facility] Basophils Percent Auto 0.7 0 - 2 % [facility] NRBC Pct Auto 0.0 0.0 - 0.2 /100WBC [facility] Neutrophils Absolute Auto 2.8 2.0 - 8.3 x10*3/uL [facility] Imm Gran Abs Auto 0.07(H) 0.00 - 0.03 X10*3/uL [facility] Lymphocytes Absolute Auto 2.2 1.2 - 4.9 X10*3/uL [facility] Monocytes Absolute Auto 0.6 0.1 - 1.2 X10*3/uL [facility] Eosinophils Absolute Auto 0.1 0.0 - 0.4 X10*3/uL [facility] Basophils Absolute Auto 0.0 0.0 - 0.2 X10*3/uL [facility] NRBC Abs Auto 0.000 0.0 - 0.012 X10*3/uL [facility] 02/16/2025 9:08 AM EST 02/16/2025 9:12 AM EST us Generic External Data Provider LAB BLOOD ORDERAB LES Final Result [facility] [address] [place] [phone] * Lipase (02/16/2025 9:08 AM EST) Lipase 32 8 - 78 U/L [facility] 02/16/2025 9:08 AM EST 02/16/2025 9:12 AM EST us Generic External Data Provider LAB BLOOD ORDERAB LES Final Result Performing Organization Address [facility] Co de Phone Number [facility] [address] [place] [phone] * Hepatic Function Panel (02/16/2025 9:08 AM EST) Pathologist [facility] Bilirubin, Total 0.4 0.0 - 1.0 mg/dL [facility] Bilirubin, Direct 0.1 0.0 - 0.5 mg/dL [facility] Aspartate Amino Transferase 17 5 - 37 U/L [facility] Alanine Aminotransferase 26 0 - 40 U/L [facility] Total Protein 7.5 6.5 - 8.0 g/dL [facility] Albumin Level 4.4 3.5 - 5.0 g/dL [facility] Alkaline Phosphatase 86 39 - 117 U/L [facility] 02/16/2025 9:08 AM EST 02/16/2025 9:12 AM EST [employer] External Data Provider LAB BLOOD ORDERAB LES Final Result Performing Organization Address [facility] Co de Phone Number [facility] [address] [place] [phone] * (ABNORMAL) Basic Metabolic Panel (02/16/2025 9:08 AM EST) Pathologist [facility] Sodium 141 135 - 145 mmol/L [facility] Potassium 4.4 3.3 - 5.1 mmol/L [facility] Chloride 107 96 - 108 mmol/L [facility] Carbon Dioxide 26 22 - 29 mmol/L [facility] Anion Gap 12 12 - 20 [facility] Urea Nitrogen (BUN) 21(H) 9 - 16 mg/dL [facility] Creatinine, Serum 1.24 0.5 - 1.4 mg/dL [facility] Creatinine Clr Calc Pharmacy 83.2 [facility] Comment:eGFR (calculated fro m the MDRD study equation) and eCrCl(calculated from the Cockcroft-Gault equation) are based ondifferent parameters and may not yield comparable results.If eCrCl result is absurd, please check patient'sheight/weight. Estimated Glomerular Filt Rate >60 [facility] Comment:Chronic Kidney Disea se: Estimated GFR < 60 mL/min/1.45w4Vnwmlp Kidney Disease: Estimated GFR < 15 mL/min/1.73m2 Glucose 179(H) 60 - 115 mg/dL [facility] Calcium 9.6 8.4 - 10.2 mg/dL [facility] 02/16/2025 9:08 AM EST 02/16/2025 9:12 AM EST us Generic External Data Provider LAB BLOOD ORDERAB LES Final Result [facility] [address] [place] [phone] * (ABNORMAL) POCT HGB A1C (02/09/2024 3:36 PM EST) Hemoglobin A1C 6.5(A) 4.0 - 6.0 % QC Media Lot # [id number] Lot# Expiration Date [id number] Blood 02/09/2024 3:36 PM EST us Kym Mcdonough MD POINT OF CARE TEST EN TER/EDIT ORDERABLES Final Result * Albumin, Random Urine W/Creatinine (09/30/2022 12:09 PM EDT) Creatinine, Urine 96.35 mg/dL [facility] Microalbumin Urine <5.0 mg/L [facility] Microalbum Creatinine Ratio Ur TNP ug/mg cr [facility] Comment:Unable to calculate albumin/creatinine ratio due to lowmicroalbumin or creatinine result. 09/30/2022 12:0 9 PM EDT 09/30/2022 4:40 PM EDT us Kym Mcdonough MD LAB URINE ORDERABLES Final Result Performing Organization Address [facility] Co de Phone Number [facility] [address] [place] [phone] * Lipid Panel, Standard (09/30/2022 12:05 PM EDT) Triglycerides 127 mg/dL [facility] Comment:Desirable Triglyceri de: less than 150 mg/dLBorderline High Triglyceride 150-199 mg/dLHigh Triglyceride: 200-499 mg/dLVery High Triglyceride: greater than or equal to 5OO mg/dL Cholesterol 139 mg/dL [facility] Comment:Desirable Cholestero l: less than 200 mg/dLBorderline High Cholesterol: 200-239 mg/dLHigh Cholesterol: greater than 239 mg/dL LDL Cholesterol Calculated 73 mg/dl [facility] Comment:Desirable LDL: less than 100 [...] 12:05 PM EDT 09/30/2022 1:49 PM EDT us Kym Mcdonough MD LAB BLOOD ORDERABLES Final Result Performing Organization Address [facility]/ZIP Co de Phone Number [facility] [address] [place] [phone] from Last 3 Months or Most Recently Relevant to Health Maintenance Additional Health Concerns Active Problems Noted Date Diagnosed Date Help patients manage their type 2 diabetes 01/15 Weekly blood pressure task 01/15/2025 Help patients manage their type 2 diabetes 01/15 Patient has chronic kidney disease 01/15/2025 Weekly blood pressure task 01/15/2025 Patient has chronic kidney disease 01/15/2025 Weekly blood pressure task 02/10/2025 Weekly blood pressure task 02/10/2025 Patient has chronic kidney disease 02/10/2025 Patient has chronic kidney disease 02/10/2025 Insurance [facility] C3 HSN FULL Care Teams Double Reamer Operator Relationship Specialty Start Date End Date Kym Ptael MD [address] [place] [address] PCP - General Family Medicine 06/28/18
[2025-02-16] MEDS: iohexoL 350 MG/ML 100 ML INFUS..BTL IV (12:19)
[2025-02-16 12:44] VITALS: BP 111/76; PULSE 70; RESP 16; O2SAT 96
[2025-02-16 14:35] VITALS: BP 111/76; PULSE 70; RESP 16; TEMP 36.6; O2SAT 96
== END 2025-02-16 14:36 | disposition home or self-care (01) ==
PROVIDERS: Emergency Provider Emergency Medicine; PCP Internal Medicine
DX: K62.5 Hemorrhage of anus and rectum (principal); R10.30 Lower abdominal pain, unspecified; M54.50 Low back pain, unspecified; I10 Essential (primary) hypertension; E78.5 Hyperlipidemia, unspecified; E78.00 Pure hypercholesterolemia, unspecified
CPT/HCPCS: 36415; 74177; 80048; 80076; 83690; 85025; 99284; 99285; Q9967

== ENCOUNTER → 2025-02-16 11:08 | Outpatient (BNV) | payer MEDICAID, SELFPAY | PROVIDERS: Emergency Provider Emergency Medicine; PCP Internal Medicine; Visit Provider Radiology Diagnostic Radiology | DX: R10.30 Lower abdominal pain, unspecified (principal); R10.819 Abdominal tenderness, unspecified site | CPT/HCPCS: 74177 ==